=== PATIENT | female | born 1955 | race Caucasian/White ===

== ENCOUNTER → 2017-01-17 | Outpatient (CLI) | payer MEDICARE ==
--- NOTE | 2017-01-17 15:03 | CR ---
EXAMINATION: Right foot HISTORY: Pain COMPARISON: None TECHNIQUE: 3 views FINDINGS/IMPRESSION: There is no acute osseous abnormality, dislocation, or fracture identified. Bon e mineralization and joint spaces appear normal. Mild osteoarthritic changes noted at the first MTP joint. There is a moderate posterior calcaneal spur.
== END ==
LOC: MW.CHRC 10:45
PROVIDERS: ATTEND Family Medicine
DX: M79.671 Pain in right foot (principal); M19.071 Primary osteoarthritis, right ankle and foot; M77.31 Calcaneal spur, right foot; S93.601A Unspecified sprain of right foot, initial encounter; J45.40 Moderate persistent asthma, uncomplicated; L57.0 Actinic keratosis
CPT/HCPCS: 73630-26-RT; 73630-RT; 99214

== ENCOUNTER → 2017-02-20 | Outpatient (CLI) | payer MEDICARE | LOC: MW.CHPS 08:00 | PROVIDERS: ATTEND Plastic Surgery | DX: L57.0 Actinic keratosis (principal); H02.831 Dermatochalasis of right upper eyelid; H02.834 Dermatochalasis of left upper eyelid | CPT/HCPCS: 99203 ==

== ENCOUNTER 2017-02-21 17:17 | Emergency (ER) | payer MEDICARE ==
[2017-02-21] MEDS ORDERED: Albuterol/Ipratropium 3.0-0.5 MG/3 ML Neb Soln NEB ONE (17:59)
--- NOTE | 2017-02-21 19:07 | EDM.PDOC ---
ED HISTORY OF PRESENT ILLNESS - General Chief Complaint: Respiratory Problem Stated Complaint: COUGH/CONGESTION Time Seen by Provider: 02/21/17 18:00 Source of Information: Reports: Patient History Limitations: Reports: No limitations - History of Present Illness INITIAL COMMENTS - FREE TEXT/NARRATIVE: HISTORY AND PHYSICAL: History of present illness: [ patient comes emergency room complaining of cough for the past 9 days. The first couple of days she had a fever which has completely resolved. she feels as though her symptoms have not improved at all. She has not been coughing up any green or brown sputum it is primarily clear. She denies earaches headaches and face pain. No runny nose or nasal congestion. Her chest feels tight but not overly congested. Has difficulty taking a deep breath as usual without coughing. She has recently undergone some testing to determine if she has asthma or COPD including pulmonary function tests. She is uncertain as to what these results are. She's been prescribed an albuterol inhaler which she uses twice daily. This is having no improvement of her coughing and wheezing. She's not had any abdominal pain nausea or vomiting. Her appetite is normal. She's having difficulty sleeping due to the amount of coughing she is doing. She does not have any shortness of breath or difficulty breathing except for when she is coughing. She has only taken NyQuil and Tylenol as needed. She takes Coumadin due to a history of blood clots and has been nervous about adding any over-the- counter medications to this. INR was checked within the past week and was normal per her report. Review of systems: As per history of present illness and below otherwise all systems reviewed and negative. Past medical history: As per history of present illness and as reviewed below otherwise noncontributory. Surgical history: As per history of present illness and as reviewed below otherwise noncontributory. Social history: No reported history of drug or alcohol abuse. Family history: As per history of present illness and as reviewed below otherwise noncontributory. Physical exam: HEENT: Atraumatic, normocephalic. TMs are pearly pastor and without erythema or effusion. Nares are patent, no erythema or swelling noted. mucous membranes are clear and moist. No tonsillar sliding erythema or exudate. neck supple, nontender, no lymphadeonpathy. Lungs: lung sounds are tight with diminished inspiration to coughing. Wheezing present. Wheezing improved significantly following DuoNeb treatment but does continue to a much lesser extent.. Heart: S1S2, regular rate and rhythm. negative for clicks, rubs, or JVD. Abdomen: Soft, nondistended, nontender. Pelvis: Stable nontender. Genitourinary: Deferred. Rectal: Deferred. Extremities: no abnormalities or deformity is appreciated. Neurovascular unremarkable. Neuro: Awake, alert, oriented. Cranial nerves II through XII unremarkable. Motor and sensory unremarkable throughout. Exam nonfocal. Diagnostics: [Chest x-ray] Therapeutics: [ DuoNeb given in ER] Impression: [bronchitis] Plan: [Promethazine with codeine suspension #120 mL to 1 teaspoon twice a day when necessary for cough. Patient given a prescription for a nebulizer and DuoNeb # 20 sig 4 times a day when necessary cough and wheezing. No refills. We discussed at home remedies. All questions are answered and concerns are addressed. She is in agreement with today's plan.] Definitive disposition and diagnosis as appropriate pending reevaluation and review of above. - Related Data Allergies/ADRs: Allergies Allergy/AdvReac Type Severity Reaction Status Date / Time donepezil HCl [From Aricept] Allergy Nausea Verified 02/21/17 17:25 ethinyl estradiol Allergy Rash Verified 02/21/17 17:25 [From Ortho Evra] norelgestromin Allergy Rash Verified 02/21/17 17:25 [From Ortho Evra] procaine HCl [From Novocain] Allergy Rash Verified 02/21/17 17:25 solifenacin succinate Allergy Nausea Verified 02/21/17 17:25 [From Vesicare] Sulfa (Sulfonamide Allergy Nausea Verified 02/21/17 17:25 Antibiotics) Home Meds: Home Meds Aspirin [Mary Beth Chewable] 81 mg PO DAILY 12/29/14 [History] Atenolol 25 mg PO DAILY 12/29/14 [History] Warfarin [Coumadin] 2.5 mg PO DAILY 12/29/14 [History] oxyCODONE 5 mg PO Q4H 07/02/16 [History] Albuterol Sulfate [Proair Respiclick] 90 mcg IH ASDIRECTED 02/21/17 [History] Past Medical History HEENT History: Reports: Impaired vision Other HEENT History: wears eyeglasses Cardiovascular History: Reports: Other (see below) Other Cardiovascular History: irregular heart rate Respiratory History: Reports: Asthma, PE Gastrointestinal History: Reports: None Genitourinary History: Reports: None [employer] History: Reports: , Other (see below) Other OB/BYN History: TAHBSO Musculoskeletal History: Reports: Back pain, chronic Psychiatric History: Reports: None Hematologic History: Reports: Other (see below) Other Hematologic History: Factor 9 clotting deficiency Dermatologic History: Reports: None - Infectious Disease History Infectious Disease History: Reports: Chicken pox, Shingles - Past Surgical History GI Surgical History: Reports: Appendectomy Social & Family History - Family History Family Medical History: Noncontributory - Tobacco Use Smoking Status *Q: Never Smoker Second Hand Smoke Exposure: No - Recreational Drug Use Recreational Drug Use: No ED ROS GENERAL - Review of Systems Review Of Systems: ROS reveals no pertinent complaints other than HPI. ED EXAM, GENERAL - Physical Exam Exam: See Below Course - Vital Signs Last Recorded V/S: Last Vital Signs Temp 98.1 F 02/21/17 17:31 Pulse 63 02/21/17 17:31 Resp 24 H 02/21/17 17:31 BP 132/76 02/21/17 17:31 Pulse Ox 94 L 02/21/17 17:31 - Orders/Labs/Meds Orders: Active Orders 24 hr Category Date Time Status RT Aerosol Therapy [RC] ASDIRECTED Care 02/21/17 17:59 Active Chest 2V [CR] Stat Exams 02/21/17 17:59 Taken Meds: Medications Discontinued Medications Generic Name Dose Route Start Last Admin Trade Name Jurgen PRN Reason Stop Dose Admin Albuterol/Ipratropium 3 ml 02/21/17 17:59 02/21/17 18:08 Duoneb 3.0-0.5 Mg/3 Ml NEB 02/21/17 18:00 3 ml ONETIME ONE Administration Departure - Departure Time of Disposition: 19:30 Disposition: Home, Self-Care 01 Condition: good Clinical Impression: Acute bronchitis Qualifiers: Bronchitis organism: unspecified organism Qualified Code(s): J20.9 - Acute bronchitis, unspecified Instructions: Acute Bronchitis, [id number] Referrals: Jose Roberto Sanchez MD [Primary Care Provider] - Forms: ED Department Discharge Additional Instructions: The following information is given to patients seen in the emergency department who are being discharged to home. This information is to outline your options for follow-up care. We provide all patients seen in our emergency department with a follow-up referral. The need for follow-up, as well as the timing and circumstances, are variable depending upon the specifics of your emergency department visit. If you don't have a primary care physician on staff, we will provide you with a referral. We always advise you to contact your personal physician following an emergency department visit to inform them of the circumstance of the visit and for follow-up with them and/or the need for any referrals to a consulting specialist. The emergency department will also refer you to a specialist when appropriate. This referral assures that you have the opportunity for follow-up care with a specialist. All of these measure are taken in an effort to provide you with optimal care, which includes your follow-up. Under all circumstances we always encourage you to contact your private physician who remains a resource for coordinating your care. When calling for follow-up care, please make the office aware that this follow-up is from your recent emergency room visit. If for any reason you are refused follow-up, please contact the [facility] emergency department at and asked to speak to the emergency department charge nurse. [facility] [address] [place] [id number] Followup with her local primary care provider at the clinic listed above in 48- 72 hours. Tylenol or ibuprofen as needed for any discomfort. Recommend Robitussin or Delsym cough syrup as needed for chest congestion. Mucinex as needed to thin mucus. Use cough syrup twice a day as needed for cough. This will make you drowsy. Return to ER as needed as discussed. - My Orders Last 24 Hours: My Active Orders 02/21/17 17:59 RT Aerosol Therapy [RC] ASDIRECTED Chest 2V [CR] Stat - Assessment/Plan Last 24 Hours: My Active Orders 02/21/17 17:59 RT Aerosol Therapy [RC] ASDIRECTED Chest 2V [CR] Stat
[2017-02-21 21:55] VITALS: BP 123/68
--- NOTE | 2017-02-24 10:11 | CR ---
EXAM DATE: 02/21/17 PATIENT'S AGE: 61 Patient: KYLEE JOLLY Facility: [place], [place] Site . Site : 1955 Study: XRay Chest [id number]/7/2017 6:37:20 PM Ordering Physician: Doctor Walter Final Report: INDICATION: cough x10 days, fever TECHNIQUE: Chest 2 views COMPARISON: July 02, 2016. FINDINGS: Cardiovascular and mediastinum: Heart size and vasculature are normal in caliber and appearance. Mediastinum is within normal limits. Lungs and pleural spaces: Mild scarring/atelectasis along the left lung base. No sign of pleural effusion. No pneumothorax. Bones and soft tissues: No significant findings. IMPRESSION: No acute cardiopulmonary disease. Dictated by Juan Carlos Ramirez MD @ 02/21/2017 6:57:50 PM Dictated by: Juan Carlos Ramirez MD @ 02/21/2017 18:57:55 (Electronic Signature) Report Signed by Proxy and Original Signed Document filed in the Medical Record. MTDD
== END 2017-02-21 20:55 | disposition home or self-care (01) ==
LOC: MW.ED 17:17
DX: J20.9 Acute bronchitis, unspecified (principal); Z88.6 Allergy status to analgesic agent; Z88.8 Allergy status to other drugs, medicaments and biological substances; Z88.2 Allergy status to sulfonamides; Z79.82 Long term (current) use of aspirin; Z79.899 Other long term (current) drug therapy; Z79.01 Long term (current) use of anticoagulants; Z90.49 Acquired absence of other specified parts of digestive tract
CPT/HCPCS: 71020; 71020-26; 99283; 99284

== ENCOUNTER → 2017-02-26 | Outpatient (CLI) | payer MEDICARE | LOC: MW.CHFP 08:00 | PROVIDERS: ATTEND Nurse Practitioner Family | DX: J44.9 Chronic obstructive pulmonary disease, unspecified (principal); R06.02 Shortness of breath; Z09 Encounter for follow-up examination after completed treatment for conditions other than malignant neoplasm | CPT/HCPCS: G0463 ==

== ENCOUNTER → 2017-03-14 | Outpatient (CLI) | payer MEDICARE | LOC: MW.CHRC 08:00 | PROVIDERS: ATTEND Family Medicine | DX: J44.9 Chronic obstructive pulmonary disease, unspecified (principal); K21.9 Gastro-esophageal reflux disease without esophagitis; R13.10 Dysphagia, unspecified | CPT/HCPCS: G0463 ==

== ENCOUNTER 2018-03-13 09:05 | Emergency (ER) | payer MEDICARE ==
[2018-03-13] MEDS ORDERED: Acetaminophen/HYDROcodone 325-5 MG Tab PO ONE (09:30)
[2018-03-13] MEDS ORDERED: Acetaminophen/oxyCODONE 325-7.5 MG Tab PO ONE (09:32)
--- NOTE | 2018-03-13 09:32 | EDM.PDOC ---
ED HPI GENERAL MEDICAL PROBLEM - General Chief Complaint: Lower Extremity Injury/Pain Stated Complaint: LT ANKLE HURTS Time Seen by Provider: 03/13/18 09:22 - History of Present Illness INITIAL COMMENTS - FREE TEXT/NARRATIVE: HISTORY AND PHYSICAL: History of present illness: The patient is a [id number] female who has a history of DVTs and a protein deficiency and presents with a 2 day history of left ankle pain that started suddenly without any injury. The patient has never had gout or been told she has arthritis but she is concerned about a blood clot. She has no discrete calf swelling or pain and the pain is mostly localized to her ankle. She has no distal foot pain or neurosensory changes and no proximal leg or knee/hip pain. The patient has no shortness of breath no chest pain no abdominal complaints and is eating normally. She says she has not had her INR checked in the last month because her machine broke and she is on Coumadin therapy for life. She follows in our family practice clinic. She has not taken anything specifically for the pain. The patient takes chronic oxycodone for her chronic back pain and she did not take that pill this morning. Patient also complains of some dark colored urine and some suprapubic discomfort and there is some concern about urinary issues. She has no flank pain for diffuse abdominal pain. Patient says that the pain is worse with ambulation. The patient admits to nursing that she only drinks soda pop and does not drink any hydrating liquids on any regular basis Review of systems: As per history of present illness and below otherwise all systems reviewed and negative. Past medical history: As per history of present illness and as reviewed below otherwise noncontributory. Surgical history: As per history of present illness and as reviewed below otherwise noncontributory. Social history: No reported history of drug or alcohol abuse. Family history: As per history of present illness and as reviewed below otherwise noncontributory. Physical exam: HEENT: Atraumatic, normocephalic, negative for conjunctival pallor or scleral icterus, mucous membranes moist, throat clear, neck supple, nontender, trachea midline. Lungs: Clear to auscultation, breath sounds equal bilaterally, chest nontender. Heart: S1S2, regular, negative for clicks, rubs, or JVD. Abdomen: Soft, nondistended, nontender. Negative for masses or hepatosplenomegaly. Negative for costovertebral tenderness. Pelvis: Stable nontender. Genitourinary: Deferred. Rectal: Deferred. Extremities: Atraumatic, negative for cords or calf pain. Neurovascular unremarkable. There is no leg asymmetry and then there is no palpable bony deformities of the entire left leg. There is diffuse tenderness and soft tissue swelling at the left ankle without warmth erythema or ecchymosis and there is no discrete joint fluid appreciated. Distally and proximally there is no tenderness in the calf itself is not tender on the left. Neuro: Awake, alert, oriented. Cranial nerves II through XII unremarkable. Cerebellum unremarkable. Motor and sensory unremarkable throughout. Exam nonfocal. Diagnostics: X-ray left ankle venous Doppler left leg CBC CMP INR uric acid CRP sedimentation rate UA urine culture Therapeutics: Percocet cam boot Patient is aware of her INR as well as all other testing results. She will hold 1 dose of Coumadin and we will schedule a follow-up appointment in the clinic to have that rechecked along with her ankle pain. Case was discussed with Dr. Arboleda at 11:15 AM. He is aware of the case and agrees that Keflex is a good choice to treat the UTI until the culture comes back. We will schedule a follow-up appointment in the clinic and he is aware of that. I discussed with the patient all testing results including the UA. She is aware that there is blood in her urine which is likely due to the infection and her Coumadin use. I strongly recommended trying to hydrate and compliance with her clinic appointment. Dr. arboleda says that she has not been compliant with her appointments in the past. She tells me that she will hold 1 dose of her Coumadin and have it rechecked. The patient has a follow-up appointment with Dr. Sosa in the clinic on March 18 at 3:30 PM Impression: Left ankle pain and swelling, rule out strain/inflammatory process; slightly elevated INR history of dyscrasia stable; cystitis Definitive disposition and diagnosis as appropriate pending reevaluation and review of above. Left Ankle Pain Score (Numeric/FACES): 6 - Related Data Allergies Allergy/AdvReac Type Severity Reaction Status Date / Time donepezil HCl [From Aricept] Allergy Nausea Verified 03/13/18 09:19 ethinyl estradiol Allergy Rash Verified 03/13/18 09:19 [From Ortho Evra] norelgestromin Allergy Rash Verified 03/13/18 09:19 [From Ortho Evra] procaine HCl [From Novocain] Allergy Rash Verified 03/13/18 09:19 solifenacin succinate Allergy Nausea Verified 03/13/18 09:19 [From Vesicare] Sulfa (Sulfonamide Allergy Anaphylactic Verified 03/13/18 09:19 Antibiotics) Shock Home Meds: Home Meds Aspirin [Mary Beth Chewable] 81 mg PO DAILY 12/29/14 [History] Atenolol 25 mg PO DAILY 12/29/14 [History] Warfarin [Coumadin] 2.5 mg PO DAILY 12/29/14 [History] oxyCODONE 5 mg PO Q4H 07/02/16 [History] Ondansetron [Zofran ODT] 4 mg PO Q8H PRN 03/13/18 [History] Past Medical History HEENT History: Reports: Impaired Vision Other HEENT History: wears eyeglasses Cardiovascular History: Reports: Other (See Below) Other Cardiovascular History: irregular heart rate Respiratory History: Reports: Asthma, PE Gastrointestinal History: Reports: None Genitourinary History: Reports: None 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: , Other (See Below) Other OB/BYN History: TAHBSO Musculoskeletal History: Reports: Back Pain, Chronic Psychiatric History: Reports: None Hematologic History: Reports: Other (See Below) Other Hematologic History: Factor 9 clotting deficiency Dermatologic History: Reports: None - Infectious Disease History Infectious Disease History: Reports: Chicken Pox, Shingles - Past Surgical History GI Surgical History: Reports: Appendectomy Social & Family History - Family History Family Medical History: Noncontributory - Tobacco Use Smoking Status *Q: Never Smoker Second Hand Smoke Exposure: No - Recreational Drug Use Recreational Drug Use: No Review of Systems - Review of Systems Review Of Systems: ROS reveals no pertinent complaints other than HPI. ED EXAM, GENERAL - Physical Exam Exam: See Below (See dictation) Course - Vital Signs Last Recorded V/S: Last Vital Signs Temp 37.2 C 03/13/18 09:15 Pulse 75 03/13/18 09:15 Resp 18 03/13/18 09:15 BP 141/69 H 03/13/18 09:15 Pulse Ox 97 03/13/18 09:15 - Orders/Labs/Meds Orders: Active Orders 24 hr Category Date Time Status CULTURE URINE [RM] Stat Lab 03/13/18 10:36 Ordered UA W/MICROSCOPIC [URIN] Stat Lab 03/13/18 10:36 Ordered DME for Discharge [COMM] Stat Oth 03/13/18 11:01 Ordered Labs: Laboratory Tests 03/13/18 03/13/18 03/13/18 Range/Units 09:43 09:43 09:43 WBC 6.11 (4.0-11.0) K/uL RBC 4.69 (4.30-5.90) M/uL Hgb 13.4 (12.0-16.0) g/dL Hct 40.8 (36.0-46.0) % MCV 87.0 (80.0-98.0) fL MCH 28.6 (27.0-32.0) pg MCHC 32.8 (31.0-37.0) g/dL RDW Std Deviation 48.2 (28.0-62.0) fl RDW Coeff of Sigrid 15 (11.0-15.0) % Plt Count 229 (150-400) K/uL MPV 10.60 (7.40-12.00) fL Neut % (Auto) 50.2 (48.0-80.0) % Lymph % (Auto) 31.1 (16.0-40.0) % [place] % (Auto) 12.8 (0.0-15.0) % Eos % (Auto) 5.1 (0.0-7.0) % Baso % (Auto) 0.8 (0.0-1.5) % Neut # (Auto) 3.1 (1.4-5.7) K/uL Lymph # (Auto) 1.9 (0.6-2.4) K/uL [place] # (Auto) 0.8 (0.0-0.8) K/uL Eos # (Auto) 0.3 (0.0-0.7) K/uL Baso # (Auto) 0.1 (0.0-0.1) K/uL Nucleated RBC % 0.0 /100WBC Nucleated RBCs # 0 K/uL ESR (0-29) mm/hr INR 3.79 Sodium 144 (136-145) mmol/L Potassium 3.8 (3.5-5.1) mmol/L Chloride 107 (98-107) mmol/L Carbon Dioxide 29.1 (21.0-32.0) mmol/L BUN 10 (7.0-18.0) mg/dL Creatinine 1.0 (0.6-1.0) mg/dL Est Cr Clr Drug Dosing 42.97 mL/min Estimated GFR (MDRD) 56.6 ml/min Glucose 104 (74-106) mg/dL Uric Acid 3.9 (2.6-7.2) mg/dL Calcium 9.4 (8.5-10.1) mg/dL Total Bilirubin 0.3 (0.2-1.0) mg/dL AST 23 (15-37) IU/L ALT 17 (14-63) IU/L Alkaline Phosphatase 108 (46-116) U/L C-Reactive Protein 2.00 H (0.00-0.90) mg/dL Total Protein 6.9 (6.4-8.2) g/dL Albumin 3.0 L (3.4-5.0) g/dL Globulin 3.9 H (2.0-3.5) g/dL Albumin/Globulin Ratio 0.8 L (1.3-2.8) Urine Color Urine Appearance Urine pH (5.0-8.0) Ur Specific [place] (1.001-1.035) Urine Protein (NEGATIVE) mg/dL Urine Glucose (UA) (NEGATIVE) mg/dL Urine Ketones (NEGATIVE) mg/dL Urine Occult Blood (NEGATIVE) Urine Nitrite (NEGATIVE) Urine Bilirubin (NEGATIVE) Urine Ictotest Urine Urobilinogen (<2.0) EU/dL Ur Leukocyte Esterase (NEGATIVE) Urine RBC (0-2/HPF) Urine WBC (0-5/HPF) Ur Epithelial Cells (NONE-FEW) Calcium Oxalate Crystal (NEGATIVE) Urine Bacteria (NEGATIVE) Urine Mucus (NONE-MOD) 03/13/18 03/13/18 Range/Units 09:43 10:36 WBC (4.0-11.0) K/uL RBC (4.30-5.90) M/uL Hgb (12.0-16.0) g/dL Hct (36.0-46.0) % MCV (80.0-98.0) fL MCH (27.0-32.0) pg MCHC (31.0-37.0) g/dL RDW Std Deviation (28.0-62.0) fl RDW Coeff of Sigrid (11.0-15.0) % Plt Count (150-400) K/uL MPV (7.40-12.00) fL Neut % (Auto) (48.0-80.0) % Lymph % (Auto) (16.0-40.0) % [place] % (Auto) (0.0-15.0) % Eos % (Auto) (0.0-7.0) % Baso % (Auto) (0.0-1.5) % Neut # (Auto) (1.4-5.7) K/uL Lymph # (Auto) (0.6-2.4) K/uL [place] # (Auto) (0.0-0.8) K/uL Eos # (Auto) (0.0-0.7) K/uL Baso # (Auto) (0.0-0.1) K/uL Nucleated RBC % /100WBC Nucleated RBCs # K/uL ESR 28 (0-29) mm/hr INR Sodium (136-145) mmol/L Potassium (3.5-5.1) mmol/L Chloride (98-107) mmol/L Carbon Dioxide (21.0-32.0) mmol/L BUN (7.0-18.0) mg/dL Creatinine (0.6-1.0) mg/dL Est Cr Clr Drug Dosing mL/min Estimated GFR (MDRD) ml/min Glucose (74-106) mg/dL Uric Acid (2.6-7.2) mg/dL Calcium (8.5-10.1) mg/dL Total Bilirubin (0.2-1.0) mg/dL AST (15-37) IU/L ALT (14-63) IU/L Alkaline Phosphatase (46-116) U/L C-Reactive Protein (0.00-0.90) mg/dL Total Protein (6.4-8.2) g/dL Albumin (3.4-5.0) g/dL Globulin (2.0-3.5) g/dL Albumin/Globulin Ratio (1.3-2.8) Urine Color DARK YELLOW Urine Appearance CLOUDY Urine pH 5.0 (5.0-8.0) Ur Specific [place] >= 1.030 (1.001-1.035) Urine Protein 100 (NEGATIVE) mg/dL Urine Glucose (UA) NEGATIVE (NEGATIVE) mg/dL Urine Ketones NEGATIVE (NEGATIVE) mg/dL Urine Occult Blood LARGE H (NEGATIVE) Urine Nitrite POSITIVE H (NEGATIVE) Urine Bilirubin SMALL H (NEGATIVE) Urine Ictotest NEGATIVE Urine Urobilinogen 1.0 (<2.0) EU/dL Ur Leukocyte Esterase NEGATIVE (NEGATIVE) Urine RBC TOO NUMBEROUS TO CT H (0-2/HPF) Urine WBC 0-2 (0-5/HPF) Ur Epithelial Cells OCCASIONAL (NONE-FEW) Calcium Oxalate Crystal FEW (NEGATIVE) Urine Bacteria RARE (NEGATIVE) Urine Mucus LIGHT (NONE-MOD) Meds: Medications Discontinued Medications Generic Name Dose Route Start Last Admin Trade Name Freq PRN Reason Stop Dose Admin Hydrocodone Bitart/Acetaminophen 1 tab 03/13/18 09:30 03/13/18 10:01 Eddy 325-5 Mg PO 03/13/18 09:31 Not Given ONETIME ONE Oxycodone/Acetaminophen 1 tab 03/13/18 09:32 03/13/18 09:59 Percocet 325-7.5 Mg PO 03/13/18 09:33 1 tab ONETIME ONE Administration Departure - Departure Time of Disposition: 11:41 Disposition: Home, Self-Care 01 Condition: Good Clinical Impression: Elevated INR Ankle pain, left Qualifiers: Chronicity: acute Qualified Code(s): M25.572 - Pain in left ankle and joints of left foot UTI (urinary tract infection) Qualifiers: Urinary tract infection type: site unspecified Hematuria presence: with hematuria Qualified Code(s): N39.0 - Urinary tract infection, site not specified - Discharge Information Referrals: Jonathan Arboleda MD [Primary Care Provider] - Forms: ED Department Discharge Additional Instructions: The following information is given to patients seen in the emergency department who are being discharged to home. This information is to outline your options for follow-up care. We provide all patients seen in our emergency department with a follow-up referral. The need for follow-up, as well as the timing and circumstances, are variable depending upon the specifics of your emergency department visit. If you don't have a primary care physician on staff, we will provide you with a referral. We always advise you to contact your personal physician following an emergency department visit to inform them of the circumstance of the visit and for follow-up with them and/or the need for any referrals to a consulting specialist. The emergency department will also refer you to a specialist when appropriate. This referral assures that you have the opportunity for followup care with a specialist. All of these measure are taken in an effort to provide you with optimal care, which includes your followup. Under all circumstances we always encourage you to contact your private physician who remains a resource for coordinating your care. When calling for followup care, please make the office aware that this follow-up is from your recent emergency room visit. If for any reason you are refused follow-up, please contact the [facility] emergency department at and ask to speak to the emergency department charge nurse. [facility] Primary care- [place] [address] Ice and elevate the ankle as much as possible and use your pain medication as needed. Use the cam boot when you're up and about for structured and compression. Return to ER as needed and as discussed. Take antibiotics you have been prescribed and she will be contacted if the culture returns any results that mandates change in this therapy. Please try to drink more water as we discussed and keep your appointment in the clinic as scheduled. You Need to have your INR rechecked at that time. You have a follow-up scheduled on March 18 at 3:[address] Sosa in the clinic - My Orders Last 24 Hours: My Active Orders 03/13/18 10:36 CULTURE URINE [RM] Stat UA W/MICROSCOPIC [URIN] Stat 03/13/18 11:01 DME for Discharge [COMM] Stat - Assessment/Plan Last 24 Hours: My Active Orders 03/13/18 10:36 CULTURE URINE [RM] Stat UA W/MICROSCOPIC [URIN] Stat 03/13/18 11:01 DME for Discharge [COMM] Stat
--- NOTE | 2018-03-13 10:23 | US ---
ULTRASOUND EXAMINATION OF the left lower extremity WITH DOPPLER HISTORY: Pain FINDINGS: Examination of the left leg was performed from the groin to the calf region. All visualized segments including common femoral, proximal greater saphenous, superficial femoral, popliteal and calf veins appear patent with good compressibility and augmentation. There is no evidence of a deep vein thromb osis. IMPRESSION: No evidence of a DVT.
--- NOTE | 2018-03-13 10:30 | CR ---
EXAMINATION: Left ankle HISTORY: Pain COMPARISON: None TECHNIQUE: 2 views FINDINGS/IMPRESSION: There is no acute osseous abnormality, dislocation, or fracture. Bone mineraliza tion and joint spaces appear normal. Ankle mortise and talar dome are preserved. Mild soft tissue swe lling, medial greater than lateral. Tiny plantar calcaneal spur.
[2018-03-13 13:03] VITALS: BP 121/53
== END 2018-03-13 11:50 | disposition home or self-care (01) ==
LOC: MW.ED 09:05
DX: M25.572 Pain in left ankle and joints of left foot (principal); N30.00 Acute cystitis without hematuria; R79.89 Other specified abnormal findings of blood chemistry; Z88.8 Allergy status to other drugs, medicaments and biological substances; Z88.2 Allergy status to sulfonamides; Z79.82 Long term (current) use of aspirin; Z79.01 Long term (current) use of anticoagulants; Z79.899 Other long term (current) drug therapy
CPT/HCPCS: 36415; 73600; 80053; 81001; 84550; 85025; 85610; 85652; 86140; 87086; 93971; 99284; A9270

== ENCOUNTER 2018-03-16 23:27 | Emergency (ER) | payer MEDICARE ==
[2018-03-16] MEDS ORDERED: Ondansetron 4 MG/2 ML SDV IVPUSH ONE (23:41)
[2018-03-16] MEDS ORDERED: Morphine 4 MG/ML Syringe IVPUSH ONE (23:41)
--- NOTE | 2018-03-16 23:41 | EDM.PDOC ---
ED HPI GENERAL MEDICAL PROBLEM - General Chief Complaint: Genitourinary Problem Stated Complaint: PT HAS BLOOD IN URINE Time Seen by Provider: 03/16/18 23:34 - History of Present Illness INITIAL COMMENTS - FREE TEXT/NARRATIVE: HISTORY AND PHYSICAL: History of present illness: Patient is a 62-year-old female presents with concern of suprapubic and left flank pain with hematuria she was recently treated for UTI and a ankle injury returns now with pain that is now she's equivocates regarding nausea no vomiting she denies history of urolithiasis she has had a hysterectomy and appendectomy prior. Review of systems: As per history of present illness and below otherwise all systems reviewed and negative. Past medical history: As per history of present illness and as reviewed below otherwise noncontributory. Surgical history: As per history of present illness and as reviewed below otherwise noncontributory. Social history: No reported history of drug or alcohol abuse. Family history: As per history of present illness and as reviewed below otherwise noncontributory. Physical exam: HEENT: Atraumatic, normocephalic, pupils reactive, negative for conjunctival pallor or scleral icterus, mucous membranes moist, throat clear, neck supple, nontender, trachea midline. Lungs: Clear to auscultation, breath sounds equal bilaterally, chest nontender. Heart: S1S2, regular, negative for clicks, rubs, or JVD. Abdomen: Soft, nondistended, nontender. Negative for masses or hepatosplenomegaly. Left-sided costovertebral tenderness. Pelvis: Stable nontender. Genitourinary: Deferred. Rectal: Deferred. Extremities: Atraumatic, negative for cords or calf pain. Neurovascular unremarkable. Neuro: Awake, alert, oriented. Cranial nerves II through XII unremarkable. Cerebellum unremarkable. Motor and sensory unremarkable throughout. Exam nonfocal. Diagnostics: CBC CMP UA urine culture and sensitivity CT abdomen and pelvis Therapeutics: Saline 1 L bolus Toradol 30 mg IV Zofran 4 mg IV Impression: # 1 hematuria #2 left flank pain Definitive disposition and diagnosis as appropriate pending reevaluation and review of above. left lower back/bladder Pain Score (Numeric/FACES): 7 - Related Data Allergies Allergy/AdvReac Type Severity Reaction Status Date / Time donepezil HCl [From Aricept] Allergy Nausea Verified 03/13/18 09:19 ethinyl estradiol Allergy Rash Verified 03/13/18 09:19 [From Ortho Evra] norelgestromin Allergy Rash Verified 03/13/18 09:19 [From Ortho Evra] procaine HCl [From Novocain] Allergy Rash Verified 03/13/18 09:19 solifenacin succinate Allergy Nausea Verified 03/13/18 09:19 [From Vesicare] Sulfa (Sulfonamide Allergy Anaphylactic Verified 03/13/18 09:19 Antibiotics) Shock Home Meds: Home Meds Aspirin [Mary Beth Chewable] 81 mg PO DAILY 12/29/14 [History] Atenolol 25 mg PO DAILY 12/29/14 [History] Warfarin [Coumadin] 2.5 mg PO DAILY 12/29/14 [History] oxyCODONE 5 mg PO Q4H 07/02/16 [History] Ondansetron [Zofran ODT] 4 mg PO Q8H PRN 03/13/18 [History] Past Medical History HEENT History: Reports: Impaired Vision Other HEENT History: wears eyeglasses Cardiovascular History: Reports: Other (See Below) Other Cardiovascular History: irregular heart rate Respiratory History: Reports: Asthma, PE Gastrointestinal History: Reports: None Genitourinary History: Reports: None 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: , Other (See Below) Other OB/BYN History: TAHBSO Musculoskeletal History: Reports: Back Pain, Chronic Psychiatric History: Reports: None Hematologic History: Reports: Other (See Below) Other Hematologic History: Factor 9 clotting deficiency Dermatologic History: Reports: None - Infectious Disease History Infectious Disease History: Reports: Chicken Pox, Shingles - Past Surgical History GI Surgical History: Reports: Appendectomy Social & Family History - Family History Family Medical History: Noncontributory - Tobacco Use Smoking Status *Q: Never Smoker Second Hand Smoke Exposure: No - Recreational Drug Use Recreational Drug Use: No ED ROS GENERAL - Review of Systems Review Of Systems: ROS reveals no pertinent complaints other than HPI. ED EXAM, GENERAL - Physical Exam Exam: See Below (See dictation) Course - Vital Signs Last Recorded V/S: Last Vital Signs Temp 36.3 C 03/16/18 23:32 Pulse 92 03/16/18 23:32 Resp 14 03/16/18 23:32 BP 153/51 H 03/16/18 23:32 Pulse Ox 96 03/16/18 23:32 - Orders/Labs/Meds Orders: Active Orders 24 hr Category Date Time Status Abdomen Pelvis wo Cont [CT] Stat Exams 03/16/18 23:41 Taken CULTURE URINE [RM] Stat Lab 03/16/18 23:41 Ordered UA W/MICROSCOPIC [URIN] Stat Lab 03/16/18 23:45 Ordered Sodium Chloride 0.9% [Normal Saline] 1,000 ml Med 03/16/18 23:45 Active IV ASDIRECTED Medication Orders Sodium Chloride (Normal Saline) 1,000 mls @ 999 mls/hr IV ASDIRECTED LUIS Last Admin: 03/17/18 00:11 Dose: 999 mls/hr Labs: Laboratory Tests 03/16/18 03/16/18 03/16/18 Range/Units 23:45 23:50 23:50 WBC 7.56 (4.0-11.0) K/uL RBC 4.94 (4.30-5.90) M/uL Hgb 14.1 (12.0-16.0) g/dL Hct 43.3 (36.0-46.0) % MCV 87.7 (80.0-98.0) fL MCH 28.5 (27.0-32.0) pg MCHC 32.6 (31.0-37.0) g/dL RDW Std Deviation 47.1 (28.0-62.0) fl RDW Coeff of Sigrid 15 (11.0-15.0) % Plt Count 261 (150-400) K/uL MPV 10.60 (7.40-12.00) fL Neut % (Auto) 78.1 (48.0-80.0) % Lymph % (Auto) 12.4 L (16.0-40.0) % Scott % (Auto) 8.5 (0.0-15.0) % Eos % (Auto) 0.7 (0.0-7.0) % Baso % (Auto) 0.3 (0.0-1.5) % Neut # (Auto) 5.9 H (1.4-5.7) K/uL Lymph # (Auto) 0.9 (0.6-2.4) K/uL Scott # (Auto) 0.6 (0.0-0.8) K/uL Eos # (Auto) 0.1 (0.0-0.7) K/uL Baso # (Auto) 0.0 (0.0-0.1) K/uL Nucleated RBC % 0.0 /100WBC Nucleated RBCs # 0 K/uL INR 1.67 Sodium (136-145) mmol/L Potassium (3.5-5.1) mmol/L Chloride (98-107) mmol/L Carbon Dioxide (21.0-32.0) mmol/L BUN (7.0-18.0) mg/dL Creatinine (0.6-1.0) mg/dL Est Cr Clr Drug Dosing mL/min Estimated GFR (MDRD) ml/min Glucose (74-106) mg/dL Calcium (8.5-10.1) mg/dL Total Bilirubin (0.2-1.0) mg/dL AST (15-37) IU/L ALT (14-63) IU/L Alkaline Phosphatase (46-116) U/L Total Protein (6.4-8.2) g/dL Albumin (3.4-5.0) g/dL Globulin (2.0-3.5) g/dL Albumin/Globulin Ratio (1.3-2.8) Urine Color BROWN Urine Appearance CLOUDY Urine pH 6.5 (5.0-8.0) Ur Specific [place] >= 1.030 (1.001-1.035) Urine Protein 100 (NEGATIVE) mg/dL Urine Glucose (UA) NEGATIVE (NEGATIVE) mg/dL Urine Ketones TRACE H (NEGATIVE) mg/dL Urine Occult Blood LARGE H (NEGATIVE) Urine Nitrite POSITIVE H (NEGATIVE) Urine Bilirubin MODERATE H (NEGATIVE) Urine Urobilinogen 1.0 (<2.0) EU/dL Ur Leukocyte Esterase TRACE (NEGATIVE) Urine RBC TOO NUMBEROUS TO CT H (0-2/HPF) Urine WBC 2-4 (0-5/HPF) Ur Epithelial Cells RARE (NONE-FEW) Urine Bacteria FEW (NEGATIVE) Urine Mucus WAREHOUSE ADMINISTRATOR 03/16/18 Range/Units 23:50 WBC (4.0-11.0) K/uL RBC (4.30-5.90) M/uL Hgb (12.0-16.0) g/dL Hct (36.0-46.0) % MCV (80.0-98.0) fL MCH (27.0-32.0) pg MCHC (31.0-37.0) g/dL RDW Std Deviation (28.0-62.0) fl RDW Coeff of Sigrid (11.0-15.0) % Plt Count (150-400) K/uL MPV (7.40-12.00) fL Neut % (Auto) (48.0-80.0) % Lymph % (Auto) (16.0-40.0) % Scott % (Auto) (0.0-15.0) % Eos % (Auto) (0.0-7.0) % Baso % (Auto) (0.0-1.5) % Neut # (Auto) (1.4-5.7) K/uL Lymph # (Auto) (0.6-2.4) K/uL Scott # (Auto) (0.0-0.8) K/uL Eos # (Auto) (0.0-0.7) K/uL Baso # (Auto) (0.0-0.1) K/uL Nucleated RBC % /100WBC Nucleated RBCs # K/uL INR Sodium 141 (136-145) mmol/L Potassium 3.8 (3.5-5.1) mmol/L Chloride 104 (98-107) mmol/L Carbon Dioxide 28.6 (21.0-32.0) mmol/L BUN 16 (7.0-18.0) mg/dL Creatinine 1.1 H (0.6-1.0) mg/dL Est Cr Clr Drug Dosing 39.07 mL/min Estimated GFR (MDRD) 50.7 ml/min Glucose 121 H (74-106) mg/dL Calcium 9.4 (8.5-10.1) mg/dL Total Bilirubin 0.3 (0.2-1.0) mg/dL AST 24 (15-37) IU/L ALT 20 (14-63) IU/L Alkaline Phosphatase 118 H (46-116) U/L Total Protein 7.7 (6.4-8.2) g/dL Albumin 3.2 L (3.4-5.0) g/dL Globulin 4.5 H (2.0-3.5) g/dL Albumin/Globulin Ratio 0.7 L (1.3-2.8) Urine Color Urine Appearance Urine pH (5.0-8.0) Ur Specific [place] (1.001-1.035) Urine Protein (NEGATIVE) mg/dL Urine Glucose (UA) (NEGATIVE) mg/dL Urine Ketones (NEGATIVE) mg/dL Urine Occult Blood (NEGATIVE) Urine Nitrite (NEGATIVE) Urine Bilirubin (NEGATIVE) Urine Urobilinogen (<2.0) EU/dL Ur Leukocyte Esterase (NEGATIVE) Urine RBC (0-2/HPF) Urine WBC (0-5/HPF) Ur Epithelial Cells (NONE-FEW) Urine Bacteria (NEGATIVE) Urine Mucus Meds: Medications Generic Name Dose Route Start Last Admin Trade Name Freq PRN Reason Stop Dose Admin Sodium Chloride 1,000 mls @ 999 mls/hr 03/16/18 23:45 03/17/18 00:11 Normal Saline IV 999 mls/hr ASDIRECTED LUIS Administration Discontinued Medications Generic Name Dose Route Start Last Admin Trade Name Freq PRN Reason Stop Dose Admin Hydromorphone HCl 1 mg 03/17/18 00:37 03/17/18 00:42 Dilaudid IVPUSH 03/17/18 00:38 1 mg ONETIME ONE Administration Morphine Sulfate 2 mg 03/16/18 23:41 03/17/18 00:09 Morphine IVPUSH 03/16/18 23:42 2 mg ONETIME ONE Administration Ondansetron HCl 4 mg 03/16/18 23:41 03/17/18 00:11 Zofran IVPUSH 03/16/18 23:42 4 mg ONETIME ONE Administration Departure - Departure Time of Disposition: 00:53 Disposition: Home, Self-Care 01 Condition: Good Clinical Impression: Ureterolithiasis - Discharge Information Forms: ED Department Discharge Additional Instructions: The following information is given to patients seen in the emergency department who are being discharged to home. This information is to outline your options for follow-up care. We provide all patients seen in our emergency department with a follow-up referral. The need for follow-up, as well as the timing and circumstances, are variable depending upon the specifics of your emergency department visit. If you don't have a primary care physician on staff, we will provide you with a referral. We always advise you to contact your personal physician following an emergency department visit to inform them of the circumstance of the visit and for follow-up with them and/or the need for any referrals to a consulting specialist. The emergency department will also refer you to a specialist when appropriate. This referral assures that you have the opportunity for followup care with a specialist. All of these measure are taken in an effort to provide you with optimal care, which includes your followup. Under all circumstances we always encourage you to contact your private physician who remains a resource for coordinating your care. When calling for followup care, please make the office aware that this follow-up is from your recent emergency room visit. If for any reason you are refused follow-up, please contact the [facility] emergency department at and asked to speak to the emergency department charge nurse [facility] - Urology [address] [place] [id number] Hydrocodone Flomax as prescribed follow-up urology call to schedule a routine appointment push fluids continue current medications and return as needed as discussed - My Orders Last 24 Hours: My Active Orders 03/16/18 23:41 Abdomen Pelvis wo Cont [CT] Stat CULTURE URINE [RM] Stat 03/16/18 23:45 UA W/MICROSCOPIC [URIN] Stat Sodium Chloride 0.9% [Normal Saline] 1,000 ml IV ASDIRECTED - Assessment/Plan Last 24 Hours: My Active Orders 03/16/18 23:41 Abdomen Pelvis wo Cont [CT] Stat CULTURE URINE [RM] Stat 03/16/18 23:45 UA W/MICROSCOPIC [URIN] Stat Sodium Chloride 0.9% [Normal Saline] 1,000 ml IV ASDIRECTED
[2018-03-16] MEDS ORDERED: Sodium Chloride 0.9% 1,000 ML IV SCH (23:45)
[2018-03-17] MEDS ORDERED: HYDROmorphone 1 MG/ML Syringe IVPUSH ONE (00:37)
[2018-03-17 03:45] VITALS: BP 124/63
--- NOTE | 2018-03-17 13:20 | CT ---
EXAM DATE: 03/16/18 PATIENT'S AGE: 62 Patient: KYLEE JOLLY Facility: [place], [place] Site . Site : 1955 Study: CT Abdomen/Pelvis W/O [id number]/[id number] 12:04:31 AM Ordering Physician: Dr. Cancino Final Report: INDICATION: Lower abdominal pain, hematuria. TECHNIQUE: CT abdomen and pelvis without contrast. COMPARISON: None FINDINGS: Lower chest: Unremarkable. Liver: Unremarkable. Spleen: Unremarkable. Pancreas: Unremarkable. Gallbladder and bile ducts: Unremarkable. Adrenal glands: Unremarkable. Kidneys: There is a 2 mm stone at the left ureterovesical junction with mild left hydronephrosis. No additional left-sided collecting system stone identified. There is a nonobstructive 2 mm stone in the right kidney. GI tract: Minimal colonic diverticulosis. Appendix is normal. Vascular structures: There is an infrarenal IVC filter in place. Lymph nodes: Unremarkable. Miscellaneous: Unremarkable. No free air or significant free fluid. Pelvic Organs: Status post hysterectomy. Bones: Unremarkable for age. IMPRESSION: 1. Mild left hydronephrosis secondary to a 2 mm stone at the left ureterovesical junction. 2. Nonobstructive 2 mm stone in the right kidney. 3. Minimal colonic diverticulosis. 4. Infrarenal IVC filter appears appropriate in position. 5. Status post hysterectomy. Please note that all CT scans at this facility use dose modulation, iterative reconstruction, and/or weight-based dosing when appropriate to reduce radiation dose to as low as reasonably achievable. Dictated by Rosetta Cortez MD @ Mar 17 2018 12:17AM (Electronic Signature) Report Signed by Proxy. [facility]
== END 2018-03-17 01:45 | disposition home or self-care (01) ==
LOC: MW.ED 23:27
DX: N13.2 Hydronephrosis with renal and ureteral calculous obstruction (principal); J45.909 Unspecified asthma, uncomplicated; Z88.8 Allergy status to other drugs, medicaments and biological substances; Z88.2 Allergy status to sulfonamides; Z79.82 Long term (current) use of aspirin; Z79.899 Other long term (current) drug therapy; Z79.01 Long term (current) use of anticoagulants; Z90.49 Acquired absence of other specified parts of digestive tract; Z87.440 Personal history of urinary (tract) infections
CPT/HCPCS: 36415; 74176; 80053; 81001; 85025; 85610; 87086; 96361; 96374; 96375; 99284; J1170; J2270; J2405; J7040

== ENCOUNTER 2018-05-07 02:17 | Emergency (ER) | payer MEDICARE ==
--- NOTE | 2018-05-07 02:19 | EDM.PDOC ---
ED HPI GENERAL MEDICAL PROBLEM - General Stated Complaint: PAIN/SWELLING IN RIGHT ANKLE Time Seen by Provider: 05/07/18 02:19 Source of Information: Reports: Patient - History of Present Illness INITIAL COMMENTS - FREE TEXT/NARRATIVE: HISTORY AND PHYSICAL: History of present illness: [id number] female presenting in the emergency department with chief complaint of right ankle pain and swelling 1 day. States that she was driving back from [employer] today and when she stopped in [employer] she got out and noticed some pain when she was standing on her right ankle which previously was feeling normal and denies any known trauma to the ankle. When she got home she put some ice on the ankle but then noticed that the pain was increasing and she was getting more swelling in the lower extremity as well. Patient states that the pain actually involves the right lower extremity as well as behind the right knee. She denies any loss of sensation but notices some decrease in range of motion with flexion. Also states that flexion of the right ankle causes more pain. Patient does take Coumadin and recent INR was 2.05 and she has been normally therapeutic. States that last year she had similar episode where left ankle became painful. They did do a Doppler as well as x-rays and found no acute abnormal findings. He was placed in a boot and states that it progressively got better. Currently denies any shortness of breath, chest pain, palpitations, syncopal episodes, or focal neurologic episodes. On exam there is obvious increased swelling to the right lower extremity as compared to the left. Patient is tender to palpation along the right lower leg. Positive Homans sign. No signs of erythema, positive peripheral pulses. Venous Doppler of the right lower leg was negative for evidence of DVT. Right x- ray of the ankle showed mild lateral swelling but no significant ankle effusion. Achilles tendon had normal appearance. No radiopaque foreign objects noted. No acute osseous injuries or abnormalities. Patient has similar episode in the left ankle approximately a month ago. She did get a boot at that time and states that the inflammation slowly went away on its own. CBC, CMP were unremarkable. INR was therapeutic at 2.24. Did order a uric acid as somewhat suspicious of gout. Review of systems: As per history of present illness and below otherwise all systems reviewed and negative. Past medical history: As per history of present illness and as reviewed below otherwise noncontributory. Surgical history: As per history of present illness and as reviewed below otherwise noncontributory. Social history: No reported history of drug or alcohol abuse. Family history: As per history of present illness and as reviewed below otherwise noncontributory. Physical exam: HEENT: Atraumatic, normocephalic, pupils reactive, negative for conjunctival pallor or scleral icterus, mucous membranes moist, throat clear, neck supple, nontender, trachea midline. Lungs: Clear to auscultation, breath sounds equal bilaterally, chest nontender. Heart: S1S2, regular, negative for clicks, rubs, or JVD. Abdomen: Soft, nondistended, nontender. Negative for masses or hepatosplenomegaly. Negative for costovertebral tenderness. Pelvis: Stable nontender. Genitourinary: Deferred. Rectal: Deferred. Extremities: See above Atraumatic Neurovascular unremarkable. Neuro: Awake, alert, oriented. Cranial nerves II through XII unremarkable. Cerebellum unremarkable. Motor and sensory unremarkable throughout. Exam nonfocal. Diagnostics: Right ankle x-ray, right venous Doppler, CBC, CMP, INR Therapeutics: Prednisone 40 mg by mouth daily 5 days. Impression: Acute onset of pain and inflammation of right lower leg Rule out DVT Rule out fracture, Rule out gout Possible rheumatologic in origin Plan: CBC, CMP, INR unremarkable. X-ray as well as ultrasound were unremarkable as well. I did get a uric acid which is within normal limits. I am still unsure as to patient's acute swelling in leave it may be rheumatologic in origin. Did give the patient a prescription for prednisone 40 mg by mouth daily and told her to follow-up with her primary care provider early next week. She is in agreement and will return to emergency department if she has any new or worsening symptoms. right ankle Pain Score (Numeric/FACES): 9 - Related Data Allergies Allergy/AdvReac Type Severity Reaction Status Date / Time donepezil HCl [From Aricept] Allergy Nausea Verified 05/07/18 02:29 ethinyl estradiol Allergy Rash Verified 05/07/18 02:29 [From Ortho Evra] norelgestromin Allergy Rash Verified 05/07/18 02:29 [From Ortho Evra] procaine HCl [From Novocain] Allergy Rash Verified 05/07/18 02:29 solifenacin succinate Allergy Nausea Verified 05/07/18 02:29 [From Vesicare] Sulfa (Sulfonamide Allergy Anaphylactic Verified 05/07/18 02:29 Antibiotics) Shock Home Meds: Home Meds Aspirin [Mary Beth Chewable] 81 mg PO DAILY 12/29/14 [History] Atenolol 25 mg PO DAILY 12/29/14 [History] Warfarin [Coumadin] 2.5 mg PO DAILY 12/29/14 [History] oxyCODONE 5 mg PO Q4H PRN 07/02/16 [History] Past Medical History HEENT History: Reports: Impaired Vision Other HEENT History: wears eyeglasses Cardiovascular History: Reports: Other (See Below) Other Cardiovascular History: irregular heart rate Respiratory History: Reports: Asthma, PE Gastrointestinal History: Reports: None Genitourinary History: Reports: None PORTFOLIO STRATEGIST History: Reports: , Other (See Below) Other OB/BYN History: TAHBSO Musculoskeletal History: Reports: Back Pain, Chronic Psychiatric History: Reports: None Hematologic History: Reports: Other (See Below) Other Hematologic History: Factor 9 clotting deficiency Dermatologic History: Reports: None - Infectious Disease History Infectious Disease History: Reports: Chicken Pox, Shingles - Past Surgical History GI Surgical History: Reports: Appendectomy Social & Family History - Family History Family Medical History: Noncontributory ED ROS GENERAL - Review of Systems Review Of Systems: ROS reveals no pertinent complaints other than HPI. ED EXAM, GENERAL - Physical Exam Exam: See Below Course - Vital Signs Last Recorded V/S: Last Vital Signs Temp 99.6 F 05/07/18 02:17 Pulse 87 05/07/18 02:17 Resp 18 05/07/18 02:17 BP 124/75 05/07/18 02:17 Pulse Ox 97 05/07/18 02:17 - Orders/Labs/Meds Orders: Active Orders 24 hr Category Date Time Status Ankle Min 3V Rt [CR] Stat Exams 05/07/18 02:57 Taken Venous Doppler Lwr Ext Rt [US] Stat Exams 05/07/18 02:53 Taken Labs: Laboratory Tests 05/07/18 05/07/18 05/07/18 Range/Units 03:03 03:03 03:03 WBC 7.07 (4.0-11.0) K/uL RBC 4.82 (4.30-5.90) M/uL Hgb 13.9 (12.0-16.0) g/dL Hct 41.8 (36.0-46.0) % MCV 86.7 (80.0-98.0) fL MCH 28.8 (27.0-32.0) pg MCHC 33.3 (31.0-37.0) g/dL RDW Std Deviation 46.2 (28.0-62.0) fl RDW Coeff of Sigrid 15 (11.0-15.0) % Plt Count 197 (150-400) K/uL MPV 10.60 (7.40-12.00) fL Neut % (Auto) 69.8 (48.0-80.0) % Lymph % (Auto) 15.4 L (16.0-40.0) % [place] % (Auto) 12.9 (0.0-15.0) % Eos % (Auto) 1.3 (0.0-7.0) % Baso % (Auto) 0.6 (0.0-1.5) % Neut # (Auto) 4.9 (1.4-5.7) K/uL Lymph # (Auto) 1.1 (0.6-2.4) K/uL [place] # (Auto) 0.9 H (0.0-0.8) K/uL Eos # (Auto) 0.1 (0.0-0.7) K/uL Baso # (Auto) 0.0 (0.0-0.1) K/uL Nucleated RBC % 0.0 /100WBC Nucleated RBCs # 0 K/uL INR 2.24 Sodium 140 (136-145) mmol/L Potassium 3.9 (3.5-5.1) mmol/L Chloride 104 (98-107) mmol/L Carbon Dioxide 28.5 (21.0-32.0) mmol/L BUN 13 (7.0-18.0) mg/dL Creatinine 1.1 H (0.6-1.0) mg/dL Est Cr Clr Drug Dosing 39.07 mL/min Estimated GFR (MDRD) 50.7 ml/min Glucose 127 H (74-106) mg/dL Uric Acid (2.6-7.2) mg/dL Calcium 8.8 (8.5-10.1) mg/dL Total Bilirubin 0.4 (0.2-1.0) mg/dL AST 23 (15-37) IU/L ALT 22 (14-63) IU/L Alkaline Phosphatase 103 (46-116) U/L Total Protein 6.9 (6.4-8.2) g/dL Albumin 3.3 L (3.4-5.0) g/dL Globulin 3.6 H (2.0-3.5) g/dL Albumin/Globulin Ratio 0.9 L (1.3-2.8) 05/07/18 Range/Units 03:03 WBC (4.0-11.0) K/uL RBC (4.30-5.90) M/uL Hgb (12.0-16.0) g/dL Hct (36.0-46.0) % MCV (80.0-98.0) fL MCH (27.0-32.0) pg MCHC (31.0-37.0) g/dL RDW Std Deviation (28.0-62.0) fl RDW Coeff of Sigrid (11.0-15.0) % Plt Count (150-400) K/uL MPV (7.40-12.00) fL Neut % (Auto) (48.0-80.0) % Lymph % (Auto) (16.0-40.0) % [place] % (Auto) (0.0-15.0) % Eos % (Auto) (0.0-7.0) % Baso % (Auto) (0.0-1.5) % Neut # (Auto) (1.4-5.7) K/uL Lymph # (Auto) (0.6-2.4) K/uL [place] # (Auto) (0.0-0.8) K/uL Eos # (Auto) (0.0-0.7) K/uL Baso # (Auto) (0.0-0.1) K/uL Nucleated RBC % /100WBC Nucleated RBCs # K/uL INR Sodium (136-145) mmol/L Potassium (3.5-5.1) mmol/L Chloride (98-107) mmol/L Carbon Dioxide (21.0-32.0) mmol/L BUN (7.0-18.0) mg/dL Creatinine (0.6-1.0) mg/dL Est Cr Clr Drug Dosing mL/min Estimated GFR (MDRD) ml/min Glucose (74-106) mg/dL Uric Acid 4.1 (2.6-7.2) mg/dL Calcium (8.5-10.1) mg/dL Total Bilirubin (0.2-1.0) mg/dL AST (15-37) IU/L ALT (14-63) IU/L Alkaline Phosphatase (46-116) U/L Total Protein (6.4-8.2) g/dL Albumin (3.4-5.0) g/dL Globulin (2.0-3.5) g/dL Albumin/Globulin Ratio (1.3-2.8) Departure - Departure Time of Disposition: 04:59 Disposition: Home, Self-Care 01 Condition: Good Clinical Impression: Pain in right leg, Swelling of right lower extremity - Discharge Information Referrals: Jonathan Arboleda MD [Primary Care Provider] - Additional Instructions: My general discharge The following information is given to patients seen in the emergency department who are being discharged to home. This information is to outline your options for follow-up care. We provide all patients seen in our emergency department with a follow-up referral. The need for follow-up, as well as the timing and circumstances, are variable depending upon the specifics of your emergency department visit. If you don't have a primary care physician on staff, we will provide you with a referral. We always advise you to contact your personal physician following an emergency department visit to inform them of the circumstance of the visit and for follow-up with them and/or the need for any referrals to a consulting specialist. The emergency department will also refer you to a specialist when appropriate. This referral assures that you have the opportunity for follow-up care with a specialist. All of these measure are taken in an effort to provide you with optimal care, which includes your follow-up. Under all circumstances we always encourage you to contact your private physician who remains a resource for coordinating your care. When calling for follow-up care, please make the office aware that this follow-up is from your recent emergency room visit. If for any reason you are refused follow-up, please contact the [facility] Emergency Department at and asked to speak to the emergency department charge nurse. [facility] [address] [place] [id number] Rest, ice, and keep affected right leg elevated as much as possible. Take medication as prescribed. Return to emergency department if any new or worsening symptoms. Follow-up with your primary care provider. - My Orders Last 24 Hours: My Active Orders 05/07/18 02:53 Venous Doppler Lwr Ext Rt [US] Stat 05/07/18 02:57 Ankle Min 3V Rt [CR] Stat - Assessment/Plan Last 24 Hours: My Active Orders 05/07/18 02:53 Venous Doppler Lwr Ext Rt [US] Stat 05/07/18 02:57 Ankle Min 3V Rt [CR] Stat
[2018-05-07] MEDS ORDERED: methylPREDNISolone Sodium Succinate 125 MG/2 ML SDV IM ONE (05:18)
[2018-05-07 05:30] VITALS: BP 134/73
--- NOTE | 2018-05-07 09:36 | US ---
EXAM DATE: 05/07/18 PATIENT'S AGE: 62 Patient: KYLEE JOLLY Facility: [place], [place] Site . Site : 1955 Study: US Extremity Venous RT [id number]/07/2018 3:40:31 AM Ordering Physician: Daniel Cid Final Report: INDICATION: Right leg pain and swelling TECHNIQUE: Ultrasound venous duplex right lower extremity. Logan-scale, color Doppler, and spectral Doppler imaging were performed with compression and augmentation. COMPARISON: None FINDINGS: Deep veins: The right femoral, common femoral, popliteal, and visualized calf veins are fully compressible, demonstrate normal color flow, and normal response to mechanical augmentation. The Duplex Doppler waveforms are normal in appearance. The visualized contralateral left common femoral vein is patent. Superficial veins: The visualized greater saphenous and superficial veins of the leg and calf are unremarkable. Soft tissues: No masses or cysts are identified. No adenopathy is seen. IMPRESSION: 1. No sonographic evidence of deep venous thrombosis seen. Dictated by: Alec Palacios MD @ 05/07/2018 03:41:46 (Electronic Signature) Report Signed by Proxy. ANIL
--- NOTE | 2018-05-07 10:12 | CR ---
EXAM DATE: 05/07/18 PATIENT'S AGE: 62 Patient: KYLEE JOLLY Facility: [place], [place] Site . Site : 1955 Study: XRay Extremity Right [id number]/21/2018 3:51:25 AM Ordering Physician: Daniel Cid Final Report: INDICATION: Ankle Pain, swelling TECHNIQUE: Ankle radiograph 3 views right COMPARISON: None FINDINGS: Bones: No acute fractures or aggressive bone lesions are identified. Joints: The ankle mortise joint and the visualized hindfoot joints are unremarkable in appearance. No significant ankle effusion is seen. Soft tissue: Mild lateral swelling noted. The Kager fat pad and the Achilles` tendon is normal in appearance. No radiopaque foreign bodies are seen. IMPRESSION: 1. No acute osseous injuries or abnormalities are noted. Dictated by: Alce Palacios MD @ 05/07/2018 03:55:19 (Electronic Signature) Report Signed by Proxy. [facility]ITAL[facility]na
== END 2018-05-07 05:38 | disposition home or self-care (01) ==
LOC: MW.ED 02:17
DX: M19.071 Primary osteoarthritis, right ankle and foot (principal); J45.909 Unspecified asthma, uncomplicated; Z88.2 Allergy status to sulfonamides; Z88.8 Allergy status to other drugs, medicaments and biological substances; Z79.82 Long term (current) use of aspirin; Z79.01 Long term (current) use of anticoagulants
CPT/HCPCS: 36415; 73610; 80053; 84550; 85025; 85610; 93971; 96372; 99284; J2930

== ENCOUNTER 2020-02-03 13:59 | Emergency (ER) | payer MEDICARE ==
--- NOTE | 2020-02-03 14:38 | EDM.PDOC ---
ED HPI GENERAL MEDICAL PROBLEM - General Chief Complaint: Respiratory Problem Stated Complaint: CHEST PAIN Time Seen by Provider: 02/03/20 14:20 Source of Information: Reports: Patient History Limitations: Reports: No Limitations - History of Present Illness INITIAL COMMENTS - FREE TEXT/NARRATIVE: This 64 year old female with a history of PE and DVT is admitted to the ED with a chief complaint SOB over the past two days that has gotten worse. She states that she had some dental work done and her dentist had her to reduce her Coumadin from 5mg to 2.5mg. She denies any chest pain. She complains of back pain in the mid back to the left mid lateral abdomen. The patient states that she had a vena cava filter put in 15 years ago. She denies any other complaints at this time. Onset: Today, Other (two days ago) Duration: Getting Worse Location: Reports: Other (SOB is getting worse) Severity: Mild (to moderate) Improves with: Reports: None Worsens with: Reports: Other (deep breathing makes it worse on the left side of lateral mid chest level.) Associated Symptoms: Reports: Cough (mild), Shortness of Breath left side back Pain Score (Numeric/FACES): 2 - Related Data Allergies Allergy/AdvReac Type Severity Reaction Status Date / Time donepezil HCl [From Aricept] Allergy Nausea Verified 11/07/18 14:51 ethinyl estradiol Allergy Rash Verified 11/07/18 14:51 [From Ortho Evra] norelgestromin Allergy Rash Verified 11/07/18 14:51 [From Ortho Evra] procaine HCl [From Novocain] Allergy Rash Verified 11/07/18 14:51 prochlorperazine Allergy Rash Verified 02/03/20 14:16 [From Compazine] solifenacin succinate Allergy Nausea Verified 11/07/18 14:51 [From Vesicare] Sulfa (Sulfonamide Allergy Anaphylactic Verified 11/07/18 14:51 Antibiotics) Shock Home Meds: Home Meds Warfarin [Coumadin] 2.5 mg PO DAILY 12/29/14 [History] atenoloL [Atenolol] 25 mg PO DAILY 12/29/14 [History] oxyCODONE 5 mg PO Q4H PRN 07/02/16 [History] Cyclobenzaprine [Flexeril] 10 mg PO ASDIRECTED PRN 02/03/20 [History] Ondansetron [Zofran] 4 mg PO ASDIRECTED PRN 02/03/20 [History] RABEprazole Sodium [Rabeprazole Sodium] 20 mg PO DAILY 02/03/20 [History] Past Medical History HEENT History: Reports: Impaired Vision Other HEENT History: wears eyeglasses Cardiovascular History: Reports: Arrhythmia, Other (See Below) Other Cardiovascular History: irregular heart rate Respiratory History: Reports: Asthma, PE Gastrointestinal History: Reports: None Genitourinary History: Reports: None HOSPITAL RECRUITER History: Reports: , Other (See Below) Other HOSPITAL RECRUITER History: [facility] Musculoskeletal History: Reports: Back Pain, Chronic, Neck Pain, Chronic Neurological History: Reports: None Psychiatric History: Reports: None Endocrine/Metabolic History: Reports: None Hematologic History: Reports: Other (See Below) Other Hematologic History: Factor 9 clotting deficiency Immunologic History: Reports: None Oncologic (Cancer) History: Reports: None Dermatologic History: Reports: None - Infectious Disease History Infectious Disease History: Reports: Chicken Pox - Past Surgical History Head Surgeries/Procedures: Reports: None HEENT Surgical History: Reports: None Cardiovascular Surgical History: Reports: None Respiratory Surgical History: Reports: None GI Surgical History: Reports: Appendectomy Female Surgical History: Reports: None Endocrine Surgical History: Reports: None Neurological Surgical History: Reports: None Musculoskeletal Surgical History: Reports: None Oncologic Surgical History: Reports: None Dermatological Surgical History: Reports: None Social & Family History - Family History Family Medical History: Noncontributory - Tobacco Use Smoking Status *Q: Former Smoker Used Tobacco, but Quit: Yes Month/Year Tobacco Last Used: 11/1994 - Caffeine Use Caffeine Use: Reports: Soda - Recreational Drug Use Recreational Drug Use: No ED ROS GENERAL - Review of Systems Review Of Systems: See Below Constitutional: Reports: No Symptoms HEENT: Reports: No Symptoms Respiratory: Reports: Shortness of Breath Cardiovascular: Reports: No Symptoms Endocrine: Reports: No Symptoms GI/Abdominal: Reports: No Symptoms : Reports: No Symptoms Musculoskeletal: Reports: No Symptoms Skin: Reports: No Symptoms Neurological: Reports: No Symptoms ED EXAM, GENERAL - Physical Exam Exam: See Below Exam Limited By: No Limitations General Appearance: Alert, WD/WN, No Apparent Distress Ears: Normal External Exam, Normal Canal, Hearing Grossly Normal, Normal TMs Nose: Normal Inspection, Normal Mucosa, No Blood Throat/Mouth: Normal Inspection, Normal Lips, Normal Teeth, Normal Gums, Normal Oropharynx, Normal Voice, No Airway Compromise Head: Atraumatic, Normocephalic Neck: Normal Inspection, Supple, Non-Tender, Full Range of Motion Respiratory/Chest: Lungs Clear, Normal Breath Sounds, Chest Non-Tender, Other ( No acute respiratory distress.) Cardiovascular: Normal Peripheral Pulses, Regular Rate, Rhythm, No Edema, No Gallop, No JVD, No Murmur Peripheral Pulses: 3+: Carotid (L), Carotid (R), Femoral (L), Femoral (R), Dorsalis Pedis (L), Dorsalis Pedis (R) GI/Abdominal: Normal Bowel Sounds, Soft, Non-Tender, No Organomegaly, No Distention, No Abnormal Bruit, No Mass (Female) Exam: Deferred Rectal (Female) Exam: Deferred Back Exam: Normal Inspection, Full Range of Motion Extremities: Normal Inspection, Normal Range of Motion, No Pedal Edema Neurological: Alert, Oriented (times 4), CN II-XII Intact, Normal Reflexes, No Motor/Sensory Deficits Psychiatric: Normal Affect, Normal Mood Skin Exam: Warm, Dry, Intact, Normal Color, No Rash Lymphatic: No Adenopathy Course - Vital Signs Text/Narrative:: The patient is doing much better at time of my re-evaluation. Her CTA's were negative for PE and dissection. She will be discharged. She agrees with the discharge plan. Last Recorded V/S: Last Vital Signs Temp 96.5 F L 02/03/20 14:16 Pulse 74 02/03/20 15:28 Resp 16 02/03/20 15:28 BP 134/73 02/03/20 15:28 Pulse Ox 97 02/03/20 15:28 - Orders/Labs/Meds Orders: Active Orders 24 hr Category Date Time Status CTA Abdomen W & W/O Contrast [Ang Abdomen] [CT] Stat Exams 02/03/20 14:27 Taken Labs: Laboratory Tests 02/03/20 02/03/20 02/03/20 Range/Units 14:09 14:09 14:09 WBC 7.27 (4.0-11.0) K/uL RBC 4.83 (4.30-5.90) M/uL Hgb 13.1 (12.0-16.0) g/dL Hct 42.0 (36.0-46.0) % MCV 87.0 (80.0-98.0) fL MCH 27.1 (27.0-32.0) pg MCHC 31.2 (31.0-37.0) g/dL RDW Std Deviation 45.9 (28.0-62.0) fl RDW Coeff of Sigrid 14 (11.0-15.0) % Plt Count 258 (150-400) K/uL MPV 10.30 (7.40-12.00) fL Neut % (Auto) 67.7 (48.0-80.0) % Lymph % (Auto) 19.3 (16.0-40.0) % [place] % (Auto) 9.2 (0.0-15.0) % Eos % (Auto) 3.4 (0.0-7.0) % Baso % (Auto) 0.4 (0.0-1.5) % Neut # (Auto) 4.9 (1.4-5.7) K/uL Lymph # (Auto) 1.4 (0.6-2.4) K/uL [place] # (Auto) 0.7 (0.0-0.8) K/uL Eos # (Auto) 0.3 (0.0-0.7) K/uL Baso # (Auto) 0.0 (0.0-0.1) K/uL Nucleated RBC % 0.0 /100WBC Nucleated RBCs # 0 K/uL INR Sodium 141 (136-145) mmol/L Potassium 4.0 (3.5-5.1) mmol/L Chloride 106 (98-107) mmol/L Carbon Dioxide 27.9 (21.0-32.0) mmol/L BUN 14 (7.0-18.0) mg/dL Creatinine 1.0 (0.6-1.0) mg/dL Est Cr Clr Drug Dosing 41.90 mL/min Estimated GFR (MDRD) 56.2 ml/min Glucose 83 (74-106) mg/dL Calcium 8.7 (8.5-10.1) mg/dL Total Bilirubin 0.5 (0.2-1.0) mg/dL AST 21 (15-37) IU/L ALT 20 (14-63) IU/L Alkaline Phosphatase 101 (46-116) U/L Troponin I (0.000-0.056) ng/mL B-Natriuretic Peptide 13 (<100) PG/ML Total Protein 6.9 (6.4-8.2) g/dL Albumin 3.1 L (3.4-5.0) g/dL Globulin 3.8 (2.6-4.0) g/dL Albumin/Globulin Ratio 0.8 L (0.9-1.6) 02/03/20 02/03/20 Range/Units 14:09 14:09 WBC (4.0-11.0) K/uL RBC (4.30-5.90) M/uL Hgb (12.0-16.0) g/dL Hct (36.0-46.0) % MCV (80.0-98.0) fL MCH (27.0-32.0) pg MCHC (31.0-37.0) g/dL RDW Std Deviation (28.0-62.0) fl RDW Coeff of Sigrid (11.0-15.0) % Plt Count (150-400) K/uL MPV (7.40-12.00) fL Neut % (Auto) (48.0-80.0) % Lymph % (Auto) (16.0-40.0) % [place] % (Auto) (0.0-15.0) % Eos % (Auto) (0.0-7.0) % Baso % (Auto) (0.0-1.5) % Neut # (Auto) (1.4-5.7) K/uL Lymph # (Auto) (0.6-2.4) K/uL [place] # (Auto) (0.0-0.8) K/uL Eos # (Auto) (0.0-0.7) K/uL Baso # (Auto) (0.0-0.1) K/uL Nucleated RBC % /100WBC Nucleated RBCs # K/uL INR 1.64 Sodium (136-145) mmol/L Potassium (3.5-5.1) mmol/L Chloride (98-107) mmol/L Carbon Dioxide (21.0-32.0) mmol/L BUN (7.0-18.0) mg/dL Creatinine (0.6-1.0) mg/dL Est Cr Clr Drug Dosing mL/min Estimated GFR (MDRD) ml/min Glucose (74-106) mg/dL Calcium (8.5-10.1) mg/dL Total Bilirubin (0.2-1.0) mg/dL AST (15-37) IU/L ALT (14-63) IU/L Alkaline Phosphatase (46-116) U/L Troponin I < 0.050 (0.000-0.056) ng/mL B-Natriuretic Peptide (<100) PG/ML Total Protein (6.4-8.2) g/dL Albumin (3.4-5.0) g/dL Globulin (2.6-4.0) g/dL Albumin/Globulin Ratio (0.9-1.6) Meds: Medications Discontinued Medications Generic Name Dose Route Start Last Admin Trade Name Freq PRN Reason Stop Dose Admin Iopamidol 100 ml 02/03/20 15:25 02/03/20 15:26 Isovue Multipack-370 (76%) IVPUSH 02/03/20 15:26 100 ml ONETIME ONE Administration Departure - Departure Time of Disposition: 18:49 Disposition: Home, Self-Care 01 Condition: Good Clinical Impression: Mild shortness of breath - Discharge Information *PRESCRIPTION DRUG MONITORING PROGRAM REVIEWED*: Yes *COPY OF PRESCRIPTION DRUG MONITORING REPORT IN PATIENT JASMEET: Yes Instructions: Shortness of Breath, Adult, [id number] Referrals: PCP,Unobtain [Primary Care Provider] - Forms: ED Department Discharge Additional Instructions: Take all medications as directed. Follow up with your PCP in the next two to four days. Rest for the next 24 hours. Return to the ED if your condition gets worse or should you have any questions or concerns. The following information is given to patients seen in the emergency department who are being discharged to home. This information is to outline your options for follow-up care. We provide all patients seen in our emergency department with a follow-up referral. The need for follow-up, as well as the timing and circumstances, are variable depending upon the specifics of your emergency department visit. If you don't have a primary care physician on staff, we will provide you with a referral. We always advise you to contact your personal physician following an emergency department visit to inform them of the circumstance of the visit and for follow-up with them and/or the need for any referrals to a consulting specialist. The emergency department will also refer you to a specialist when appropriate. This referral assures that you have the opportunity for follow-up care with a specialist. All of these measure are taken in an effort to provide you with optimal care, which includes your follow-up. Under all circumstances we always encourage you to contact your private physician who remains a resource for coordinating your care. When calling for follow-up care, please make the office aware that this follow-up is from your recent emergency room visit. If for any reason you are refused follow-up, please contact the [facility] Emergency Department at and asked to speak to the emergency department charge nurse. Sepsis Event Note - Evaluation Sepsis Screening Result: No Definite Risk - Focused Exam Date Exam was Performed: 02/04/20 Time Exam was Performed: 07:41 - My Orders Last 24 Hours: My Active Orders 02/03/20 14:27 CTA Abdomen W & W/O Contrast [Ang Abdomen] [CT] Stat - Assessment/Plan Last 24 Hours: My Active Orders 02/03/20 14:27 CTA Abdomen W & W/O Contrast [Ang Abdomen] [CT] Stat
[2020-02-03 14:45] LABS: CARBON DIOXIDE,CO2 27.9 mmol/L (21.0-32.0)
[2020-02-03] MEDS ORDERED: Iopamidol 755 MG/ML 200 ML Multipack Bottle IVPUSH ONE (15:25)
[2020-02-03 15:28] VITALS: BP 134/73; PULSE 74
--- NOTE | 2020-02-03 15:57 | CT ---
CT chest Technique: Multiple axial sections through the chest were obtained. Intravenous contrast was utilized. Study performed as a pulmonary and gram protocol. Comparison: No prior chest imaging is available. Findings: Pulmonary arteries are fairly well-opacified. No filling defects are seen to indicate pulmonary embolism. Visualized upper abdominal structures shows no discrete abnormality. Mediastinum and hilar regions show no adenopathy. Lungs are clear with no acute parenchymal change. Bone window settings were reviewed which shows no acute osseous finding. Impression: 1. No findings of pulmonary embolism. 2. Nothing acute is appreciated on CT study of the chest. Diagnostic code #1 Study was dictated in MDT
--- NOTE | 2020-02-04 15:03 | CT ---
CT abdomen Multiple axial sections were obtained through the abdomen with IV contrast in the arterial phase. Note: This study has only now been submitted for final dictation. Findings: Thoracic aorta shows no dissection. Abdominal aorta shows no dissection. No aneurysm is seen within the aorta. Normal appearing celiac axis and superior mesenteric artery. Both renal arteries appear to be patent. Inferior mesenteric artery is also patent. Inferior vena cava filter is noted. Liver shows no focal abnormality. Spleen appears normal in size. Adrenal glands show no nodule. Pancreas is within normal limits. Gallbladder contains no calcified gallstones. Aorta shows no aneurysm. No retroperitoneal adenopathy or mesenteric abnormalities are seen. Kidneys show symmetric contrast enhancement without hydronephrosis or mass. Impression: 1. Aorta shows no aneurysm or dissection. Branch vessels of the aorta within the abdomen are patent. 2. Inferior vena cava filter is noted. 3. No additional abnormality appreciated. Diagnostic code #2 Study was dictated in MDT
== END 2020-02-03 19:13 | disposition home or self-care (01) ==
LOC: MW.ED 13:59
DX: R06.02 Shortness of breath (principal); J45.909 Unspecified asthma, uncomplicated; Z86.711 Personal history of pulmonary embolism; Z87.891 Personal history of nicotine dependence; Z88.8 Allergy status to other drugs, medicaments and biological substances; Z88.2 Allergy status to sulfonamides; Z79.01 Long term (current) use of anticoagulants; Z79.899 Other long term (current) drug therapy
CPT/HCPCS: 36415; 71275; 74175; 80053; 83880; 84484; 85025; 85610; 93005; 99285; Q9967

== ENCOUNTER 2021-08-17 23:56 | Emergency (ER) | payer MEDICARE ==
[2021-08-18 02:13] LABS: CARBON DIOXIDE,CO2 32.7 mmol/L (21.0-32.0); POTASSIUM,K 3.5 mmol/L (3.5-5.1)
--- NOTE | 2021-08-18 02:20 | CT ---
INDICATION: Right flank pain and hematuria TECHNIQUE: Axial images were obtained from the diaphragm to the pubic symphysis. Reformats were obtained in the coronal and sagittal plane. IV Contrast: None Oral Contrast: None COMPARISON: Abdomen and pelvis CT 09/17/2019 FINDINGS: Lower chest: Unremarkable. Liver: Unremarkable. Normal in size and attenuation. No masses. Gallbladder and bile ducts: Unremarkable. No stones or inflammation. No biliary dilatation. Spleen: Unremarkable. Normal in size without mass. Pancreas: Mild pancreatic atrophy. Adrenal glands: Unremarkable. No nodules. Kidneys: No hydronephrosis, however there is a mid right ureteral stone measuring 3 millimeters (201, 115). Vasculature: No abdominal aortic aneurysm. Inferior vena cava filter present. GI tract: The stomach is unremarkable. No dilated bowel or localized inflammation. Mild colonic diverticulosis. Pelvis: Status post hysterectomy. Bones: Unremarkable for age. IMPRESSION: Nephrolithiasis. No hydronephrosis, however there is a mid right ureteral stone measuring 3 millimeters. Please note that all CT scans at this facility use dose modulation, iterative reconstruction, and/or weight-based dosing when appropriate to reduce radiation dose to as low as reasonably achievable. Dictated by Tarun Guillory MD @ 08/18/2021 2:19:07 AM (Electronically Signed)
--- NOTE | 2021-08-18 03:04 | EDM.PDOC ---
ED HPI GENERAL MEDICAL PROBLEM - General Chief Complaint: Genitourinary Problem Stated Complaint: BLOOD IN URINE Time Seen by Provider: 08/18/21 00:59 - History of Present Illness INITIAL COMMENTS - FREE TEXT/NARRATIVE: CHIEF COMPLAINT(S): Right flank pain HISTORY OF PRESENT ILLNESS: This is a 66-year-old woman with a PMH of factor V leiden who presents to the ED with a chief complaint of right flank pain. Patient states that for approximately 4 days now has been experiencing right flank pain which he describes as sharp and intermittent. She states the main reason she came to the emergency department today is because she has associated blood in her urine. She states that she is on warfarin. She did not yet tried any pain medications at home oxycodone. She denies any fever, chills, chest pain, shortness of breath. She denies any abdominal pain. She denies any pain with urination. She denies any exacerbating or relieving factors. She states that she does have a history of kidney stones however in the remote past. REVIEW OF SYSTEMS: Constitutional: Denies fever, chills. Eyes: Denies eye pain Ears, Nose, Mouth, & Throat: Denies earache Cardiovascular: Denies chest pain Respiratory: Denies shortness of breath Gastrointestinal: Denies Nausea, vomiting, diarrhea, hematochezia. Genitourinary: Positive for right flank pain and hematuria. Denies dysuria Skin:Denies a rash MSK: Denies joint pain Neurological: Denies blurred vision Psychiatric: Denies depression PAST MEDICAL HISTORY: As per history of present illness and as reviewed below otherwise noncontributory. SURGICAL HISTORY: As per history of present illness and as reviewed below otherwise noncontributory. SOCIAL HISTORY: As per history of present illness and as reviewed below otherwise noncontributory. FAMILY HISTORY: As per history of present illness and as reviewed below otherwise noncontributory. EXAMINATION OF ORGAN SYSTEMS/BODY AREAS: Constitutional: Blood pressure was 110/82, heart rate 76, respiratory rate 18 with oxygen saturation of 96% on room air. Temperature 35.5 temporal General: Well-appearing woman with no acute distress psychiatric: Appropriate mood and affect. Eyes: No scleral icterus or conjunctival erythema ENMT: Moist mucous membranes. No pharyngeal erythema Cardiovascular: Regular, rate, and rhythm. No gallops, murmurs, or rubs. Bilateral upper extremity pulses symmetric and intact. No peripheral edema. No JVD. Respiratory: Lungs clear to auscultation bilaterally. No wheezes, rales, or rhonchi. Gastrointestinal: Soft, non-tender, non-distended. Normoactive bowel sounds Genitourinary: No suprapubic tenderness mild CVA tenderness on the right. Musculoskeletal: Normal range of motion. Skin: No lesions or abrasions. Neurological: Alert, GCS 15 MEDICAL DECISION MAKING AND COURSE IN THE ED WITH INTERPRETATION/REVIEW OF DIAGNOSTIC STUDIES: This is a 67-year-old woman with a past medical history of factor V and was on warfarin who presents to the emergency department with hematuria and right flank pain. Patient's vitals are normal at this time. Obtain labs including CBC, BMP INR, urinalysis. Will obtain a CT abdomen pelvis without contrast for reevaluation of obstructing kidney stone. Patient stated the pain is currently stable therefore we will hold off on pain medication administration at this time. Laboratory: CBC is unremarkable. BMP reveals elevated BUN at 24 and a creatinine of 1.2 which is around the patient's baseline. Urinalysis reveals hematuria otherwise unremarkable. The radiological images were viewed by myself along with reading the report from the radiologist. CT abdomen pelvis without contrast reveals a 3 mm nonobstructing stone in the mid ureter on the right without any signs of hydronephrosis. After imaging I did discuss the results with the patient. I did discuss with her that she needed to continue monitoring her hematuria given that she is on warfarin. I discussed that if she had worsening bleeding she should return the emergency department. Otherwise she needs to strain her urine and monitor for stone passage. I did provide the patient with a prescription for Flomax. She was given follow-up information with urology. She amenable to discharge at this time and had no further questions. DISPOSITION: The patient was discharged home in stable condition. The patient will follow up with urology as needed CONDITION: Fair PROCEDURES: None FINAL IMPRESSION(S)/DIAGNOSES: 1. Acute nonobstructing nephrolithiasis Kojo Wild M.D. Lower back Pain Score (Numeric/FACES): 4 - Related Data Allergies Allergy/AdvReac Type Severity Reaction Status Date / Time donepezil HCl [From Aricept] Allergy Nausea Verified 08/18/21 00:38 ethinyl estradiol Allergy Rash Verified 08/18/21 00:38 [From Ortho Evra] norelgestromin Allergy Rash Verified 08/18/21 00:38 [From Ortho Evra] procaine HCl [From Novocain] Allergy Rash Verified 08/18/21 00:38 prochlorperazine Allergy Rash Verified 08/18/21 00:38 [From Compazine] solifenacin succinate Allergy Nausea Verified 08/18/21 00:38 [From Vesicare] Sulfa (Sulfonamide Allergy Anaphylactic Verified 08/18/21 00:38 Antibiotics) Shock sulfur dioxide Allergy Shortness Verified 08/18/21 00:38 of Breath sulfur Allergy Shortness Uncoded 08/18/21 00:38 of Breath Home Meds: Home Meds Warfarin [Coumadin] 0.5 tab PO DAILY 12/29/14 [History] oxyCODONE 10 mg PO Q4H PRN 07/02/16 [History] Cyclobenzaprine [Flexeril] 10 mg PO ASDIRECTED PRN 02/03/20 [History] Ondansetron [Zofran] 4 mg PO ASDIRECTED PRN 02/03/20 [History] RABEprazole Sodium [Rabeprazole Sodium] 20 mg PO BID 02/03/20 [History] Aspirin [Adult Low Dose Aspirin EC] 81 mg PO DAILY 08/04/20 [History] Metoprolol Tartrate 100 mg PO DAILY 08/18/21 [History] Tamsulosin [Tamsulosin 24 Hr] 0.4 mg PO DAILY #14 cap.er 08/18/21 [Rx] Past Medical History HEENT History: Reports: Impaired Vision Other HEENT History: wears eyeglasses Cardiovascular History: Reports: Arrhythmia, High Cholesterol, Hypertension Other Cardiovascular History: irregular heart rate Respiratory History: Reports: Asthma, COPD, PE Gastrointestinal History: Reports: None Genitourinary History: Reports: None HAMPER MAKER MACHINE History: Reports: Other (See Below), Other HAMPER MAKER MACHINE History: TAHBSO Musculoskeletal History: Reports: Back Pain, Chronic, Neck Pain, Chronic Neurological History: Reports: None Psychiatric History: Reports: None Endocrine/Metabolic History: Reports: Obesity/BMI 30+ Hematologic History: Reports: Other (See Below) Other Hematologic History: Factor 9 clotting deficiency Immunologic History: Reports: None Oncologic (Cancer) History: Reports: None Dermatologic History: Reports: None - Infectious Disease History Infectious Disease History: Reports: Chicken Pox - Past Surgical History Head Surgeries/Procedures: Reports: None HEENT Surgical History: Reports: None Cardiovascular Surgical History: Reports: Other (See Below) Other Cardiovascular Surgeries/Procedures: vena cava filter Respiratory Surgical History: Reports: None GI Surgical History: Reports: Appendectomy, Small Bowel Female Surgical History: Reports: None Endocrine Surgical History: Reports: None Neurological Surgical History: Reports: None Musculoskeletal Surgical History: Reports: None Oncologic Surgical History: Reports: None Dermatological Surgical History: Reports: None Social & Family History - Family History Family Medical History: No Pertinent Family History - Tobacco Use Tobacco Use Status *Q: Never Tobacco User Second Hand Smoke Exposure: No - Caffeine Use Caffeine Use: Reports: Soda - Recreational Drug Use Recreational Drug Use: No ED ROS GENERAL - Review of Systems Review Of Systems: See Below ED EXAM, GENERAL - Physical Exam Exam: See Below Course - Vital Signs Last Recorded V/S: Last Vital Signs Temp 35.5 C L 08/18/21 00:33 Pulse 67 08/18/21 03:25 Resp 17 08/18/21 03:25 BP 147/66 H 08/18/21 03:25 Pulse Ox 96 08/18/21 03:25 - Orders/Labs/Meds Labs: Laboratory Tests 08/18/21 08/18/21 08/18/21 Range/Units 01:00 01:30 01:30 WBC 6.68 (4.0-11.0) K/uL RBC 4.80 (4.30-5.90) M/uL Hgb 12.1 (12.0-16.0) g/dL Hct 38.5 (36.0-46.0) % MCV 80.2 (80.0-98.0) fL MCH 25.2 L (27.0-32.0) pg MCHC 31.4 (31.0-37.0) g/dL RDW Std Deviation 46.3 (28.0-62.0) fl RDW Coeff of Sigrid 16 H (11.0-15.0) % Plt Count 333 (150-400) K/uL MPV 9.70 (7.40-12.00) fL Neut % (Auto) 47.5 L (48.0-80.0) % Lymph % (Auto) 39.5 (16.0-40.0) % [place] % (Auto) 10.2 (0.0-15.0) % Eos % (Auto) 2.2 (0.0-7.0) % Baso % (Auto) 0.6 (0.0-1.5) % Neut # (Auto) 3.2 (1.4-5.7) K/uL Lymph # (Auto) 2.6 H (0.6-2.4) K/uL [place] # (Auto) 0.7 (0.0-0.8) K/uL Eos # (Auto) 0.2 (0.0-0.7) K/uL Baso # (Auto) 0.0 (0.0-0.1) K/uL INR Sodium 138 (136-145) mmol/L Potassium 3.5 (3.5-5.1) mmol/L Chloride 99 (98-107) mmol/L Carbon Dioxide 32.7 H (21.0-32.0) mmol/L BUN 24 H (7.0-18.0) mg/dL Creatinine 1.2 H (0.6-1.0) mg/dL Est Cr Clr Drug Dosing 34.02 mL/min Estimated GFR (MDRD) 45.2 ml/min Glucose 106 (74-106) mg/dL Calcium 8.9 (8.5-10.1) mg/dL Urine Color YELLOW Urine Appearance SLT CLOUDY Urine pH 5.0 (5.0-8.0) Ur Specific [place] >= 1.030 (1.001-1.035) Urine Protein NEGATIVE (NEGATIVE) mg/dL Urine Glucose (UA) NEGATIVE (NEGATIVE) mg/dL Urine Ketones NEGATIVE (NEGATIVE) mg/dL Urine Occult Blood LARGE H (NEGATIVE) Urine Nitrite NEGATIVE (NEGATIVE) Urine Bilirubin NEGATIVE (NEGATIVE) Urine Urobilinogen 0.2 (<2.0) EU/dL Ur Leukocyte Esterase NEGATIVE (NEGATIVE) Urine RBC 90-100 (0-2/HPF) Urine WBC 0-2 (0-5/HPF) Ur Epithelial Cells FEW (NONE-FEW) Urine Bacteria FEW (NEGATIVE) Urine Mucus LIGHT (NONE-MOD) 08/18/21 Range/Units 01:30 WBC (4.0-11.0) K/uL RBC (4.30-5.90) M/uL Hgb (12.0-16.0) g/dL Hct (36.0-46.0) % MCV (80.0-98.0) fL MCH (27.0-32.0) pg MCHC (31.0-37.0) g/dL RDW Std Deviation (28.0-62.0) fl RDW Coeff of Sigrid (11.0-15.0) % Plt Count (150-400) K/uL MPV (7.40-12.00) fL Neut % (Auto) (48.0-80.0) % Lymph % (Auto) (16.0-40.0) % [place] % (Auto) (0.0-15.0) % Eos % (Auto) (0.0-7.0) % Baso % (Auto) (0.0-1.5) % Neut # (Auto) (1.4-5.7) K/uL Lymph # (Auto) (0.6-2.4) K/uL [place] # (Auto) (0.0-0.8) K/uL Eos # (Auto) (0.0-0.7) K/uL Baso # (Auto) (0.0-0.1) K/uL INR 2.17 Sodium (136-145) mmol/L Potassium (3.5-5.1) mmol/L Chloride (98-107) mmol/L Carbon Dioxide (21.0-32.0) mmol/L BUN (7.0-18.0) mg/dL Creatinine (0.6-1.0) mg/dL Est Cr Clr Drug Dosing mL/min Estimated GFR (MDRD) ml/min Glucose (74-106) mg/dL Calcium (8.5-10.1) mg/dL Urine Color Urine Appearance Urine pH (5.0-8.0) Ur Specific [place] (1.001-1.035) Urine Protein (NEGATIVE) mg/dL Urine Glucose (UA) (NEGATIVE) mg/dL Urine Ketones (NEGATIVE) mg/dL Urine Occult Blood (NEGATIVE) Urine Nitrite (NEGATIVE) Urine Bilirubin (NEGATIVE) Urine Urobilinogen (<2.0) EU/dL Ur Leukocyte Esterase (NEGATIVE) Urine RBC (0-2/HPF) Urine WBC (0-5/HPF) Ur Epithelial Cells (NONE-FEW) Urine Bacteria (NEGATIVE) Urine Mucus (NONE-MOD) Departure - Departure Time of Disposition: 03:01 Disposition: Home, Self-Care 01 Condition: Fair Clinical Impression: Kidney stone on right side - Discharge Information *PRESCRIPTION DRUG MONITORING PROGRAM REVIEWED*: No *COPY OF PRESCRIPTION DRUG MONITORING REPORT IN PATIENT JASMEET: No Prescriptions: Tamsulosin [Tamsulosin 24 Hr] 0.4 mg PO DAILY #14 cap.er Instructions: Kidney Stones, [id number], Dietary Guidelines to Help Prevent Kidney Stones Referrals: Jonathan Arboleda MD [Primary Care Provider] - Forms: ED Department Discharge Additional Instructions: You were evaluated today on an emergent basis. At this time you do have a kidney stone in your right ureter. This kidney stone measures 3 mm which is quite tiny. Typically a stone of this size passes on its own. We would would like you to strain your urine every time you urinate until the stone is visualized. If you have any worsening pain, fevers I would like you to return to the emergency department. In addition given that you are on warfarin I would like you to monitor the amount of blood in your urine. If it worsens or does not decrease after the passage of the stone I would like you to return to the emergency department. Otherwise please follow-up with primary care physician in 3 to 5 days. You may follow-up with urology at the number below however I do believe that the kidney stone will pass on its own. [facility] [place], [place] [phone] *When you call for an appointment say "I was seen in the ER in [place] and I have a kidney stone and need follow up this week." [facility] [address] [place] [address] [id number] [address] The patient is informed of any results of their evaluation and diagnostic workup and all questions are answered. They are given discharge instructions and return precautions. The patient is stable for discharge. The patient states they understand and agree with the plan and that they will return if their symptoms get worse or if they have any new concerns. The following information is given to patients seen in the emergency department who are being discharged to home. This information is to outline your options for follow-up care. We provide all patients seen in our emergency department with a follow-up referral. The need for follow-up, as well as the timing and circumstances, are variable depending upon the specifics of your emergency department visit. If you don't have a primary care physician on staff, we will provide you with a referral. We always advise you to contact your personal physician following an emergency department visit to inform them of the circumstance of the visit and for follow-up with them and/or the need for any referrals to a consulting specialist. The emergency department will also refer you to a specialist when appropriate. This referral assures that you have the opportunity for follow-up care with a specialist. All of these measure are taken in an effort to provide you with optimal care, which includes your follow-up. Under all circumstances we always encourage you to contact your private physician who remains a resource for coordinating your care. When calling for follow-up care, please make the office aware that this follow-up is from your recent emergency room visit. If for any reason you are refused follow-up, please contact the [facility] Emergency Department at and asked to speak to the emergency department charge nurse. Sepsis Event Note (ED) - Evaluation Sepsis Screening Result: No Definite Risk
[2021-08-18 03:25] VITALS: BP 147/66; PULSE 67
== END 2021-08-18 03:26 | disposition home or self-care (01) ==
LOC: MW.ED 23:56
DX: N20.2 Calculus of kidney with calculus of ureter (principal); I10 Essential (primary) hypertension; J44.9 Chronic obstructive pulmonary disease, unspecified; E66.9 Obesity, unspecified; Z68.32 Body mass index [BMI] 32.0-32.9, adult; Z86.711 Personal history of pulmonary embolism; Z88.8 Allergy status to other drugs, medicaments and biological substances; Z88.4 Allergy status to anesthetic agent; Z88.2 Allergy status to sulfonamides; Z79.01 Long term (current) use of anticoagulants; Z79.82 Long term (current) use of aspirin; Z79.899 Other long term (current) drug therapy
CPT/HCPCS: 36415; 74176; 74176-26; 80048; 81001; 85025; 85610; 99283; 99284-25

== ENCOUNTER 2021-09-26 09:00 | Day surgery (SDC) | payer MEDICARE ==
--- NOTE | 2021-09-26 08:04 | PCM.PREANE ---
Preanesthetic Assessment - Anesthesia/Transfusion/Family Hx Anesthesia History: Prior Anesthesia Without Reaction Transfusion History: Prior Transfusion Without Reaction - Review of Systems General: No Symptoms Pulmonary: No Symptoms Cardiovascular: No Symptoms Gastrointestinal: No Symptoms Neurological: No Symptoms Other: Reports: None - Physical Assessment NPO Status Date: 09/26/21 NPO Status Time: 00:00 Height: 5 ft Weight: 174 lb ASA Class: 3 Mental Status: Alert & Oriented x3 Airway Class: Mallampati = 2 Dentition: Reports: Normal Dentition ROM/Head Extension: Full Lungs: Clear to Auscultation, Normal Respiratory Effort Cardiovascular: Regular Rate, Regular Rhythm - Allergies Allergies/Adverse Reactions: Allergies Allergy/AdvReac Type Severity Reaction Status Date / Time donepezil HCl [From Aricept] Allergy Nausea Verified 09/13/21 08:05 ethinyl estradiol Allergy "coagulation Verified 09/17/21 08:49 [From Ortho Evra] disorder" latex Allergy Rash Verified 09/17/21 08:26 norelgestromin Allergy "coagulation Verified 09/17/21 08:49 [From Ortho Evra] disorder" procaine HCl [From Novocain] Allergy Rash Verified 09/13/21 08:05 prochlorperazine Allergy Rash/"my Verified 09/17/21 08:26 [From Compazine] muscles constricted" solifenacin succinate Allergy Nausea Verified 08/18/21 00:38 [From Vesicare] Sulfa (Sulfonamide Allergy Anaphylactic Verified 09/13/21 08:05 Antibiotics) Shock - Acknowledgements Anesthesia Type Planned: General Anesthesia Pt an Appropriate Candidate for the Planned Anesthesia: Yes Alternatives and Risks of Anesthesia Discussed w Pt/Guardian: Yes Pt/Guardian Understands and Agrees with Anesthesia Plan: Yes PreAnesthesia Questionnaire HEENT History: Reports: Impaired Vision Other HEENT History: wears eyeglasses, upper denture, dental implants Cardiovascular History: Reports: Arrhythmia, Blood Clots/VTE/DVT Other Cardiovascular History: paroxysmal tachycardia, DVT jono lower extremities and hx PE Respiratory History: Reports: PE, Other (See Below) Other Respiratory History: denies asthma or COPD states had reduced lung function due to PE Gastrointestinal History: Reports: Bowel Obstruction, GERD, Hiatal Hernia, Other (See Below) Other Gastrointestinal History: barretts esophagus Genitourinary History: Reports: Renal Calculus INTEGRATED PEST MANAGEMENT TECHNICIAN History: Reports: Other (See Below), Other OB/BYN History: TAHBSO Musculoskeletal History: Reports: Back Pain, Chronic, Neck Pain, Chronic Neurological History: Reports: Migraines, TIA Psychiatric History: Reports: None Endocrine/Metabolic History: Reports: Obesity/BMI 30+ Hematologic History: Reports: Anticoagulation Therapy, Blood Transfusion(s), Other (See Below) Other Hematologic History: Factor 9 clotting deficiency, Lupus anticoagulant disorder Immunologic History: Reports: None Oncologic (Cancer) History: Reports: None Dermatologic History: Reports: None - Infectious Disease History Infectious Disease History: Reports: Chicken Pox - Past Surgical History Head Surgeries/Procedures: Reports: None HEENT Surgical History: Reports: Oral Surgery Other HEENT Surgeries/Procedures: dental implants, bone grafts Cardiovascular Surgical History: Reports: Other (See Below) Other Cardiovascular Surgeries/Procedures: vena cava filter Respiratory Surgical History: Reports: None GI Surgical History: Reports: Appendectomy, EGD, Small Bowel Other GI Surgeries/Procedures: SBO following surgery for ectopic , had laparotomy with adhesiolysis Female Surgical History: Reports: Hysterectomy, Salpingo-Oophorectomy, Other (See Below) Other Female Surgeries/Procedures: laparotomy for ectopic Male Surgical History: Endocrine Surgical History: Reports: None Neurological Surgical History: Reports: None Musculoskeletal Surgical History: Reports: None Oncologic Surgical History: Reports: None Dermatological Surgical History: Reports: None - SUBSTANCE USE Tobacco Use Status *Q: Former Tobacco User Tobacco Use Within Last Twelve Months: No - HOME MEDS Home Medications: Home Meds Warfarin [Coumadin] 0.5 tab PO DAILY 12/29/14 [History] Cyclobenzaprine [Flexeril] 10 mg PO ASDIRECTED PRN 02/03/20 [History] Ondansetron [Zofran] 4 mg PO ASDIRECTED PRN 02/03/20 [History] RABEprazole Sodium [Rabeprazole Sodium] 20 mg PO BID 02/03/20 [History] Aspirin [Adult Low Dose Aspirin EC] 81 mg PO DAILY 08/04/20 [History] Metoprolol Tartrate 100 mg PO DAILY 08/18/21 [History] ALPRAZolam [Alprazolam] 0.5 mg PO BEDTIME PRN 09/17/21 [History] Hydrocodone/Acetaminophen [HYDROcodone-Acetaminophen 10-325 MG] 1 tab PO QID PRN 09/17/21 [History] Naloxone HCl [Narcan] 1 spray UGS ASDIRECTED PRN 09/17/21 [History] Spironolactone [Aldactone] 25 mg PO DAILY 09/17/21 [History] Enoxaparin [Lovenox] 1 injection SUBCUT BID 09/25/21 [History] - CURRENT (IN HOUSE) MEDS Current Meds: Current Medications Lactated Ringer's (Ringers, Lactated) 1,000 mls @ 125 mls/hr IV ASDIRECTED LUIS
[~2021-09-26 09:00] MED LIST: Lactated Ringers 1,000 ML IV SCH; Midazolam 1 MG/ML 2 ML SDV ONE; Propofol 200 MG/20 ML SDV ONE; fentaNYL 100 MCG/2 ML SDV ONE
[2021-09-26] MEDS ORDERED: Propofol 200 MG/20 ML SDV ONE (10:44)
--- NOTE | 2021-09-26 11:26 | PCM.OPNOTE ---
- General Post-Op/Procedure Note Date of Surgery/Procedure: 09/26/21 Operative Procedure(s): EGD with biopies Findings: Irregular GE junction dictation number [id number] Pre Op Diagnosis: GERD. History of Kumar's Esophagus Post-Op Diagnosis: Stomach polyps. Irregular GE junction Anesthesia Technique: Moderate Sedation Primary Surgeon: Wil Romero Pathology: Biopsies Complications: None Condition: Good
--- NOTE | 2021-09-26 11:28 | PCM.POSTAN ---
POST ANESTHESIA ASSESSMENT - MENTAL STATUS Mental Status: Alert, Oriented - VITAL SIGNS Vital Signs: Last Vital Signs Temp 36.3 C 09/26/21 09:10 Pulse 70 09/26/21 11:25 Resp 14 09/26/21 11:25 BP 99/51 L 09/26/21 11:25 Pulse Ox 94 L 09/26/21 11:25 - RESPIRATORY Respiratory Status: Respiratory Rate WNL, Airway Patent, O2 Saturation Stable - CARDIOVASCULAR CV Status: Pulse Rate WNL, Blood Pressure Stable - GASTROINTESTINAL GI Status: No Symptoms - POST OP HYDRATION Hydration Status: Adequate & Stable - OBSERVATIONS Free Text/Narrative:: Pt is awake with sats 96% on RA. pt states to being satisfied with sedation.
--- NOTE | 2021-09-26 11:28 | PCM48HPAN ---
Post Anesthesia Note - EVALUATION WITHIN 48HRS OF ANESTHETIC Vital Signs in Normal Range: Yes Patient Participated in Evaluation: Yes Respiratory Function Stable: Yes Airway Patent: Yes Cardiovascular Function Stable: Yes Hydration Status Stable: Yes Pain Control Satisfactory: Yes Nausea and Vomiting Control Satisfactory: Yes Mental Status Recovered: Yes Vital Signs: Last Vital Signs Temp 36.3 C 09/26/21 09:10 Pulse 70 09/26/21 11:25 Resp 14 09/26/21 11:25 BP 99/51 L 09/26/21 11:25 Pulse Ox 94 L 09/26/21 11:25
[2021-09-26 11:43] VITALS: BP 94/53; PULSE 67
--- NOTE | 2021-09-26 13:44 | OR ---
SURGEON: PAOLO ROMERO MD DATE OF PROCEDURE: 09/26/2021 PREOPERATIVE DIAGNOSES: 1. History of Kumar esophagus. 2. Gastroesophageal reflux disease. POSTOPERATIVE DIAGNOSES: 1. Stomach polyps. 2. Irregular gastroesophageal junction. PROCEDURE PERFORMED: Esophagogastroduodenoscopy with biopsies. PRIMARY SURGEON: Paolo Romero MD ANESTHESIA: With Anesthesiology. EXTENT OF EGD: To the duodenum. COMPLICATIONS: None. SPECIMENS: Biopsies from EGD. REASON FOR PROCEDURE: Patient is a pleasant 66-year-old female. She said five years ago, she had an EGD in [facility] and was diagnosed with Kumar esophagus. Patient has a long history of reflux disease. She was supposed to get it fixed in [place], however, because of the coronavirus, this has been delayed. She does feel like she gets fluid in the back of her throat. She does take antacid that seems to help but she still gets a lot of fluid in the back of her throat. She says in the past, she has been told she has a hiatal hernia. She is here for followup for her Kumar esophagus. She says she is following up in [place] for her antireflux surgery. PROCEDURE IN DETAIL: Physical examination was performed. The major risks and benefits associated with the procedure were explained to the patient again in detail. The patient verbalized understanding and agreement with the same. The patient was then connected to appropriate monitoring device and IV started. EKG, pulse, pulse oximetry, blood pressure, and capnography were monitored throughout the entire procedure. Continuous oxygen and sedation were provided by the anesthesiologist. After sedation was achieved, an upper endoscope was advanced under direct visualization without difficulty in the upper GI tract. The anatomy of the mucosa of the esophagus, GE junction, stomach, pylorus and duodenum were all inspected. The duodenum appeared normal, though she did have quite a bit of residual bile in it. The scope brought up to the stomach. Both retrograde and antegrade views of the stomach were done. Patient did not really have any real signs of gastritis, although she did have several gastric polyps. I did do biopsies of the pylorus and antrum area to check for H pylori. I did remove several of the gastric polyps and sent for pathology. Scope was brought to the GE junction. GE junction was approximately 35 cm from the incisors. I did not really appreciate a hiatal hernia though. Her GE junction was slightly irregular. There was one small breakdown at the junction with the little finger going up, but this was small, and under a half a centimeter in length. No nodularity seen. I did do four-quadrant biopsies of the esophagus to check for her Kumar. Scope was brought back to the stomach. Stomach was deinsufflated. Scope was brought back through the GE junction. She had good hemostasis. Scope was brought to the esophagus. Esophagus was normal. Scope was completely removed and procedure was terminated. ENDOSCOPIC DIAGNOSES: 1. Somewhat irregular gastroesophageal junction. She does have a history of Kumar esophagus. 2. Stomach polyps. RECOMMENDATIONS: Patient is to follow up in clinic to go over her biopsy results. Patient again should continue her workup in [place] for her antireflux surgery. LALITHA / AJAY /[id number] MTDD
== END 2021-09-26 12:03 | disposition home or self-care (01) ==
LOC: MW.SDS 09:00
PROVIDERS: ATTEND Surgery
DX: K31.89 Other diseases of stomach and duodenum (principal); I78.1 Nevus, non-neoplastic; K21.00 Gastro-esophageal reflux disease with esophagitis, without bleeding; K31.7 Polyp of stomach and duodenum; J44.9 Chronic obstructive pulmonary disease, unspecified; E78.5 Hyperlipidemia, unspecified; J45.40 Moderate persistent asthma, uncomplicated; I12.9 Hypertensive chronic kidney disease with stage 1 through stage 4 chronic kidney disease, or unspecified chronic kidney disease; N18.2 Chronic kidney disease, stage 2 (mild); E55.9 Vitamin D deficiency, unspecified; E66.9 Obesity, unspecified; Z88.8 Allergy status to other drugs, medicaments and biological substances; Z88.2 Allergy status to sulfonamides; Z87.19 Personal history of other diseases of the digestive system; Z91.040 Latex allergy status; Z79.899 Other long term (current) drug therapy; Z79.82 Long term (current) use of aspirin; Z86.73 Personal history of transient ischemic attack (TIA), and cerebral infarction without residual deficits; Z68.33 Body mass index [BMI] 33.0-33.9, adult
CPT/HCPCS: 43239; 88305; J2250; J2704; J3010; J7120; 00731

== ENCOUNTER 2021-12-24 16:57 | Emergency (ER) | payer MEDICARE ==
[2021-12-24] MEDS ORDERED: Sodium Chloride 0.9% 10 ML Syringe FLUSH PRN (17:26)
[2021-12-24] MEDS ORDERED: Sodium Chloride 0.9% 2.5 ML Syringe FLUSH PRN (17:26)
[2021-12-24 18:37] LABS: BLOOD UREA NITROGEN,BUN 21 mg/dL (7.0-18.0); CARBON DIOXIDE,CO2 29.1 mmol/L (21.0-32.0); CHLORIDE,CL 99 mmol/L (98-107); GLUCOSE RANDOM 114 mg/dL (74-106); POTASSIUM,K 3.7 mmol/L (3.5-5.1); SODIUM,NA 138 mmol/L (136-145)
[2021-12-24] MEDS ORDERED: Sodium Chloride 0.9% 1,000 ML IV ONE (18:44)
[2021-12-24 19:10] LABS: CORONAVIRUS COVID-19 NAA NEGATIVE (NEGATIVE); INFLUENZA A NAA NEGATIVE (NEGATIVE); INFLUENZA B NAA NEGATIVE (NEGATIVE)
[2021-12-24] MEDS ORDERED: Iopamidol 755 MG/ML 500 ML Multipack Bottle IVPUSH STA (19:37)
[2021-12-24 22:22] VITALS: BP 119/67; PULSE 72
== END 2021-12-24 21:47 | disposition home or self-care (01) ==
LOC: MW.ED 16:57
DX: R06.02 Shortness of breath (principal); R00.2 Palpitations; Z91.040 Latex allergy status; Z88.2 Allergy status to sulfonamides; Z88.8 Allergy status to other drugs, medicaments and biological substances; Z79.899 Other long term (current) drug therapy; Z20.822 Contact with and (suspected) exposure to COVID-19
CPT/HCPCS: 0240U; 36415; 71275; 80053; 83880; 84484; 85025; 85610; 93005; 99285; J7030; Q9967

== ENCOUNTER 2023-03-06 17:59 | Emergency (ER) | payer MEDICARE ==
[2023-03-06 20:48] VITALS: BP 129/74; PULSE 75
== END 2023-03-06 21:22 | disposition home or self-care (01) ==
LOC: MW.ED 17:59
DX: R59.0 Localized enlarged lymph nodes (principal); E66.9 Obesity, unspecified; Z88.8 Allergy status to other drugs, medicaments and biological substances; Z88.2 Allergy status to sulfonamides; Z88.6 Allergy status to analgesic agent; Z88.5 Allergy status to narcotic agent; Z88.4 Allergy status to anesthetic agent; Z91.040 Latex allergy status; Z79.01 Long term (current) use of anticoagulants; Z79.82 Long term (current) use of aspirin; Z86.718 Personal history of other venous thrombosis and embolism; Z86.711 Personal history of pulmonary embolism; Z68.33 Body mass index [BMI] 33.0-33.9, adult
CPT/HCPCS: 36415; 76536; 76536-26; 85610; 99283; 99284

== ENCOUNTER 2023-09-23 02:40 | Emergency (ER) | payer MEDICARE ==
[2023-09-23 02:55] LABS: BASOPHILS ABSOLUTE AUTO 0.05 K/uL (0.00-0.20); BASOPHILS PERCENT AUTO 0.6 % (0.0-1.0); EOSINOPHILS PERCENT AUTO 3.4 % (0.0-6.0); HEMATOCRIT 35.7 % (37.0-47.0); HEMOGLOBIN 11.4 g/dL (12.0-16.0); IMMATURE GRAN ABSOLUTE AUTO 0.02 K/uL (0.00-0.05); IMMATURE GRAN PERCENT AUTO 0.2 % (0.0-0.4); LYMPHOCYTES ABSOLUTE AUTO 2.21 K/uL (1.00-4.80); LYMPHOCYTES PERCENT AUTO 25.3 % (24.0-44.0); MEAN CORPUSCULAR HEMOGLOBIN 25.3 pg (28.0-32.0); MEAN CORPUSCULAR HGB CONC 31.9 g/dL (32.0-36.0); MEAN CORPUSCULAR VOLUME 79.3 fL (83.0-99.0); MEAN PLATELET VOLUME 9.4 fL (9.4-12.3); MONOCYTES ABSOLUTE AUTO 0.64 K/uL (0.00-0.80); MONOCYTES PERCENT AUTO 7.3 % (0.0-8.0); NEUTROPHILS PERCENT AUTO 63.2 % (41.0-71.0); PLATELET COUNT,PLT 281 K/uL (150-400); WHITE BLOOD CELL COUNT,WBC 8.72 K/uL (3.9-11.3)
[2023-09-23 02:58] VITALS: PULSE 78
[2023-09-23 03:09] LABS: INR 1.45 (0.86-1.11)
[2023-09-23 03:22] LABS: A/G RATIO 0.8 (0.9-1.6); ALBUMIN 3.3 g/dL (3.4-5.0); BILIRUBIN TOTAL 0.3 mg/dL (0.2-1.0); CALCIUM 9.4 mg/dL (8.5-10.1); CARBON DIOXIDE,CO2 31.3 mmol/L (21.0-32.0); CREATININE 1.8 mg/dL (0.6-1.0); EST CRCL DRUG DOSING (CG) 26.55 mL/min; POTASSIUM,K 3.3 mmol/L (3.5-5.1); PROTEIN TOTAL,TP 7.4 g/dL (6.4-8.2)
[2023-09-23 03:29] LABS: BILIRUBIN,URINE NEGATIVE (NEGATIVE); COLOR,URINE YELLOW; GLUCOSE,URINE NEGATIVE (NEGATIVE); KETONES,URINE NEGATIVE (NEGATIVE); LEUKOCYTE ESTERASE,URINE TRACE (NEGATIVE); NITRITE,URINE NEGATIVE (NEGATIVE); OCCULT BLOOD,URINE SMALL (NEGATIVE); PH,URINE 5.5 (5.0-8.0); PROTEIN,URINE NEGATIVE (NEGATIVE); UROBILINOGEN,URINE 0.2 EU/dL (<2.0)
[2023-09-23 03:38] LABS: APPEARANCE,URINE HAZY
[2023-09-23 03:39] LABS: BACTERIA,URINE FEW (NEGATIVE); EPITHELIAL CELLS,URINE FEW (NONE-FEW); RBC,URINE 0-1 (0-2/HPF); WBC,URINE 0-2 (0-5/HPF)
[2023-09-23 04:58] VITALS: BP 130/54
== END 2023-09-23 04:57 | disposition home or self-care (01) ==
LOC: MW.ED 02:40
DX: R06.02 Shortness of breath (principal); I12.9 Hypertensive chronic kidney disease with stage 1 through stage 4 chronic kidney disease, or unspecified chronic kidney disease; N18.30 Chronic kidney disease, stage 3 unspecified; J44.9 Chronic obstructive pulmonary disease, unspecified; E66.9 Obesity, unspecified; Z68.30 Body mass index [BMI] 30.0-30.9, adult; Z88.8 Allergy status to other drugs, medicaments and biological substances; Z88.2 Allergy status to sulfonamides; Z91.040 Latex allergy status; Z79.82 Long term (current) use of aspirin; Z79.01 Long term (current) use of anticoagulants; Z79.899 Other long term (current) drug therapy; Z86.718 Personal history of other venous thrombosis and embolism
CPT/HCPCS: 36415; 71046; 71046-26; 80053; 81001; 83880; 84484; 85025; 85610; 93005; 93010; 99282; 99285

== ENCOUNTER 2024-06-30 23:16 | Emergency (ER) | payer MEDICARE ==
[2024-06-30] MEDS: Diazepam 5 MG Tab PO ONE (23:55)
[2024-07-01 00:58] VITALS: BP 132/74; PULSE 88
== END 2024-07-01 00:57 | disposition home or self-care (01) ==
LOC: MW.ED 23:16
DX: M62.830 Muscle spasm of back (principal); J44.9 Chronic obstructive pulmonary disease, unspecified; K21.9 Gastro-esophageal reflux disease without esophagitis; Z86.73 Personal history of transient ischemic attack (TIA), and cerebral infarction without residual deficits; Z90.710 Acquired absence of both cervix and uterus; Z88.8 Allergy status to other drugs, medicaments and biological substances; Z91.040 Latex allergy status; Z88.5 Allergy status to narcotic agent; Z88.2 Allergy status to sulfonamides; Z79.01 Long term (current) use of anticoagulants; Z79.899 Other long term (current) drug therapy; Z79.82 Long term (current) use of aspirin
CPT/HCPCS: 93005; 99285; A9270; 93010; 99283

== ENCOUNTER 2024-10-15 02:23 | Emergency (ER) | payer MEDICARE ==
[2024-10-15 02:31] VITALS: BP 122/89; PULSE 79
[2024-10-15] MEDS: Dexamethasone 4 MG/ML SDV IM ONE (02:42)
== END 2024-10-15 02:53 | disposition home or self-care (01) ==
LOC: MW.ED 02:23
DX: H65.91 Unspecified nonsuppurative otitis media, right ear (principal); J44.9 Chronic obstructive pulmonary disease, unspecified; E66.9 Obesity, unspecified; Z86.73 Personal history of transient ischemic attack (TIA), and cerebral infarction without residual deficits; Z90.49 Acquired absence of other specified parts of digestive tract; Z90.710 Acquired absence of both cervix and uterus; Z88.2 Allergy status to sulfonamides; Z88.8 Allergy status to other drugs, medicaments and biological substances; Z91.040 Latex allergy status; Z79.82 Long term (current) use of aspirin; Z79.01 Long term (current) use of anticoagulants; Z79.899 Other long term (current) drug therapy
CPT/HCPCS: 96372; 99282; J1100